=== PATIENT | male | born 1955 | race Caucasian/White ===

== ENCOUNTER 2017-10-13 11:40 | Inpatient (IN) | payer OTHER ==
[2017-10-13 14:08] VITALS: BMI 23.7
[2017-10-13] MEDS ORDERED: NICOTINE POLACRILEX 2 MG GUM BC PRN (15:34)
[2017-10-13] MEDS ORDERED: hydrOXYzine PAMOATE 50 MG CAPSULE (FP) PO PRN (15:34)
[2017-10-13] MEDS ORDERED: guaiFENesin/D-METHORPHAN HB 10 ML UNIT-DOSE CUPS PO PRN (15:34)
[2017-10-13] MEDS ORDERED: MENTHOL/PHENOL 1 EACH UD MM PRN (15:34)
[2017-10-13] MEDS ORDERED: LOPERAMIDE HCL 2 MG CAPSULE PO PRN (15:34)
[2017-10-13] MEDS ORDERED: MAG HYDROX/AL HYDROX/SIMETH 30 ML UNIT-DOSE CUP PO PRN (15:34)
[2017-10-13] MEDS ORDERED: IBUPROFEN 400 MG TABLET (FP) PO PRN (15:34)
[2017-10-13] MEDS ORDERED: MAGNESIUM CITRATE 300 ML BOTTLE PO PRN (15:34)
[2017-10-13] MEDS ORDERED: ACETAMINOPHEN 325 MG TABLET (FP) PO PRN (15:34)
[2017-10-13] MEDS ORDERED: P-EPHED 60MG/TRIPROLIDI 2.5MG TABLET PO PRN (15:34)
[2017-10-13] MEDS ORDERED: MAGNESIUM HYDROX 2400MG/30ML ORAL SUSPENSION 30 ML CUP PO PRN (15:34)
--- NOTE | 2017-10-13 15:44 | HP ---
COWS - Scale Resting Pulse: 0= [place] 80 or Below Sweatin=Flushed/Facial Moisture Restless Observation: 1= Difficult to Sit Still Pupil Size: 0= Normal to Room Light Bone or Joint Aches: 2= Severe Diffuse Aches Runny Nose/ Eye Tearin= Runny Nose/Eyes GI Upset > 30mins: 2= Nausea/Diarrhea Tremor Observation: 2= Slight Tremor Visible Yawning Observation: 1= 1-2x During Session Anxiety or Irritability: 2=Irritable/Anxious Goose Flesh Skin: 0=Smooth Skin COWS Score: 14 [facility] Chief Complaint: Withdrawal sx. Allergies/Adverse Reactions: Allergies Allergy/AdvReac Type Severity Reaction Status Date / Time No Known Allergies Allergy Verified 10/13/17 15:01 History of Present Illness: 62 y/o man with a long hx. of heroin dependence is admitted for detox. Pt. has been in previous detox, denies significant period drug free. Exam Limitations: No Limitations - Ebola screening Have you traveled outside of the country in the last 21 days: No Have you had contact with anyone from an Ebola affected area: No Have you been sick,other than usual withdrawal symptoms: No Do you have a fever: No - Review of Systems Constitutional: Diaphoresis EENT: reports: No Symptoms Reported Respiratory: reports: No Symptoms reported Cardiac: reports: No Symptoms Reported GI: reports: Diarrhea, Nausea, Abdominal cramping : reports: No Symptoms Reported Musculoskeletal: reports: No Symptoms Reported Integumentary: reports: Sweating Neuro: reports: Tremors Endocrine: reports: No Symptoms Reported Hematology: reports: No Symptoms Reported Psychiatric: reports: No Sypmtoms Reported Other Systems: Reviewed and Negative Patient History - Patient Medical History Hx Anemia: No Hx Asthma: No Hx Chronic Obstructive Pulmonary Disease (COPD): No Hx Cancer: No Hx Cardiac Disorders: No Hx Congestive Heart Failure: No Hx Hypertension: No Hx Hypercholesterolemia: No Hx Pacemaker: No HX Cerebrovascular Accident: No Hx Seizures: No Hx Dementia: No Hx Diabetes: No Hx Gastrointestinal Disorders: No Hx Liver Disease: No Hx Genitourinary Disorders: No Hx Sexually Transmitted Disorders: No Hx Renal Disease (ESRD): No Hx Thyroid Disease: No Hx Human Immunodeficiency Virus (HIV): No Hx Hepatitis C: No Hx Depression: No Hx Suicide Attempt: No Hx Bipolar Disorder: No Hx Schizophrenia: No - Patient Surgical History Past Surgical History: No - PPD History Previous Implant?: Yes Documented Results: Negative w/o proof Implanted On Prior [facility] Admission?: No PPD to be Administered?: Yes - Smoking Cessation Smoking history: Current every day smoker Have you smoked in the past 12 months: Yes Aproximately how many cigarettes per day: 20 Hx Chewing Tobacco Use: No Initiated information on smoking cessation: Yes 'Breaking Loose' booklet given: 10/13/17 - Substance & Tx. History Hx Alcohol Use: No Hx Substance Use: Yes Substance Use Type: Heroin Hx Substance Use Treatment: Yes (Detox 4-5 yrs. ago) - Substances Abused Heroin Route: Inhalation Frequency: Daily Amount used: 10 BAGS Age of first use: 16 Date of Last Use: 10/12/17 Family Disease History - Family Disease History Family History: Denies Admission Physical Exam [facility] - Vital Signs Vital Signs: Vital Signs - 24 hr 10/13/17 14:04 Temperature 97.6 F Pulse Rate 64 Respiratory 18 Rate Blood Pressure 108/57 - Physical General Appearance: Yes: Irritable, Sweating, Anxious HEENTM: Yes: Nasal Congestion, Rhinorrhea Respiratory: Yes: Chest Non-Tender, Lungs Clear, Normal Breath Sounds Neck: Yes: Supple Breast: Yes: Breast Exam Deferred Cardiology: Yes: Regular Rhythm, Regular Rate, S1, S2 Abdominal: Yes: Normal Bowel Sounds, Non Tender, Soft Genitourinary: Yes: Within Normal Limits Back: Yes: Within Normal Limits Musculoskeletal: Yes: Within Normal Limits Extremities: Yes: Tremors Neurological: Yes: Fully Oriented, Alert Integumentary: Yes: Diaphoresis Lymphatic: Yes: Within Normal Limits - Diagnostic (1) Opioid dependence with withdrawal Current Visit: Yes Status: Acute Cleared for Admission [facility] - Detox or Rehab [facility] Level of Care: Medically Managed Detox Regimen/Protocol: Methadone [facility] Breath Alcohol Content Breath Alcohol Content: 0 Urine Drug Screen - Results Drug Screen Negative: No Urine Drug Screen Results: OPI-Opiates
[2017-10-13] MEDS ORDERED: METHADONE HCL 10 MG TABLET (FOR DETOX USE ONLY) PO ONE ×2 (17:00→23:00)
[2017-10-13] MEDS: NICOTINE 21 MG/24 HOURS TOPICAL PATCH TD SCH (17:24)
[2017-10-13] MEDS: diazePAM 5 MG TABLET PO PRN ×2 (17:24→22:52)
[2017-10-13 18:14] LABS: URINE APPEARANCE CLEAR; URINE BILIRUBIN NEGATIVE (NEGATIVE); URINE BLOOD NEGATIVE (NEGATIVE); URINE COLOR LTYELLOW; URINE GLUCOSE (UA) NEGATIVE (NEGATIVE); URINE KETONE NEGATIVE (NEGATIVE); URINE LEUK ESTERASE NEGATIVE (NEGATIVE); URINE NITRITE NEGATIVE (NEGATIVE); URINE PROTEIN NEGATIVE (NEGATIVE); URINE UROBILINOGEN NEGATIVE mg/dL (0.2-1.0)
[2017-10-13] MEDS: THIAMINE HCL 100 MG TABLET (FP) PO SCH (22:52)
[2017-10-13 23:17] LABS: URINE LEUK ESTERASE Negative (NEGATIVE)
[2017-10-14 09:41] LABS: MCH 34.2 pg (25.7-33.7); MCHC 34.4 g/dl (32.0-35.9); MEAN CELL VOLUME 99.2 fl (80-96); MEAN PLT VOLUME 8.3 fl (7.5-11.1); PLATELET COUNT 291 K/MM3 (134-434); RDW 13.4 % (11.9-15.9); WHITE BLOOD COUNT 7.2 K/mm3 (4.0-10.0)
[2017-10-14] MEDS ORDERED: METHADONE HCL 10 MG TABLET (FOR DETOX USE ONLY) PO ONE (10:00)
[2017-10-14 10:08] LABS: ALBUMIN 3.9 g/dl (3.4-5.0); ALK PHOS 95 U/L (45-117); ANION GAP 6 (8-16); BILIRUBIN,TOTAL 0.7 mg/dL (0.2-1.0); CALCIUM 8.5 mg/dL (8.5-10.1); CO2 30 mmol/L (21-32); GLUCOSE,RANDOM 92 mg/dL (74-106); SGOT/AST 16 U/L (15-37); SGPT/ALT 20 U/L (12-78); TOT PROT 7.3 g/dl (6.4-8.2)
[2017-10-14] MEDS: diazePAM 5 MG TABLET PO PRN ×2 (10:49→23:13)
[2017-10-14] MEDS: PRENATAL VITAMINS W/ FOLIC ACID TABLET (FP) PO SCH (10:49)
[2017-10-14] MEDS: NICOTINE 21 MG/24 HOURS TOPICAL PATCH TD SCH (10:51)
--- NOTE | 2017-10-14 16:17 | PN ---
BHS COWS - Scale Resting Pulse: 1= [place] 81-100 Sweatin=Flushed/Facial Moisture Restless Observation: 1= Difficult to Sit Still Pupil Size: 0= Normal to Room Light Bone or Joint Aches: 2= Severe Diffuse Aches Runny Nose/ Eye Tearin= None GI Upset > 30mins: 0= None Tremor Observation of Outstretched Hands: 2= Slight Tremor Visible Yawning Observation: 1= 1-2x During Session Anxiety or Irritability: 4=Extreme Anxiety Goose Flesh Skin: 3=Piloerection COWS Score: 16 BHS Progress Note (SOAP) Subjective: Tremors, Anxious, Body Aches, Sweating. Objective: PT. A & O X 3, OBSERVED AMBULATING ON UNIT. NO ACUTE DISTRESS. 10/14/17 16:16 Vital Signs Temperature 97.3 F L 10/14/17 10:00 Pulse Rate 87 10/14/17 10:00 Respiratory Rate 18 10/14/17 10:00 Blood Pressure 104/68 10/14/17 10:00 O2 Sat by Pulse Oximetry (%) Laboratory Tests 10/13/17 10/14/17 10/14/17 16:11 06:05 06:05 WBC 7.2 RBC 3.82 L Hgb 13.0 Hct 37.9 MCV 99.2 H MCH 34.2 H MCHC 34.4 RDW 13.4 Plt Count 291 MPV 8.3 Sodium 142 Potassium 4.3 Chloride 106 Carbon Dioxide 30 Anion Gap 6 L BUN 7 Creatinine 1.0 Creat Clearance w eGFR > 60 Random Glucose 92 Calcium 8.5 Total Bilirubin 0.7 AST 16 ALT 20 Alkaline Phosphatase 95 Total Protein 7.3 Albumin 3.9 Urine Color Ltyellow Urine Appearance Clear Urine pH 6.0 Ur Specific [place] 1.009 Urine Protein Negative Urine Glucose (UA) Negative Urine Ketones Negative Urine Blood Negative Urine Nitrite Negative Urine Bilirubin Negative Urine Urobilinogen Negative Ur Leukocyte Esterase Negative RPR Titer 10/14/17 06:05 WBC RBC Hgb Hct MCV MCH MCHC RDW Plt Count MPV Sodium Potassium Chloride Carbon Dioxide Anion Gap BUN Creatinine Creat Clearance w eGFR Random Glucose Calcium Total Bilirubin AST ALT Alkaline Phosphatase Total Protein Albumin Urine Color Urine Appearance Urine pH Ur Specific [place] Urine Protein Urine Glucose (UA) Urine Ketones Urine Blood Urine Nitrite Urine Bilirubin Urine Urobilinogen Ur Leukocyte Esterase RPR Titer Nonreactive LABS NOTED. Assessment: 10/14/17 16:16 WITHDRAWAL SYMPTOMS. Plan: CONTINUE DETOX. INCREASE DAILY PO FLUID INTAKE.
[2017-10-14] MEDS: THIAMINE HCL 100 MG TABLET (FP) PO SCH (23:11)
--- NOTE | 2017-10-15 08:51 | EKG ---
Test Reason : Blood Pressure : / mmHG Vent. Rate : 065 BPM Atrial Rate : 065 BPM P-R Int : 158 ms QRS Dur : 088 ms QT Int : 416 ms P-R-T Axes : 075 -18 068 degrees QTc Int : 432 ms NORMAL SINUS RHYTHM NORMAL ECG NO PREVIOUS ECGS AVAILABLE Confirmed by MARIXA TONEY MD ([id number]) on 10/15/2017 8:50:31 AM Referred By: Confirmed By:MARIXA TONEY MD
[2017-10-15] MEDS ORDERED: METHADONE HCL 5 MG TABLET (FOR DETOX USE ONLY) PO ONE (10:00)
[2017-10-15] MEDS: PRENATAL VITAMINS W/ FOLIC ACID TABLET (FP) PO SCH (10:56)
[2017-10-15] MEDS: NICOTINE 21 MG/24 HOURS TOPICAL PATCH TD SCH (10:56)
[2017-10-15] MEDS ORDERED: FLU VACCINE QUAD 60 MCG/0.5 ML (MDV 17-18) IM ONE (12:00)
--- NOTE | 2017-10-15 17:13 | PN ---
S COWS - Scale Resting Pulse: 0= [place] 80 or Below Sweatin=Flushed/Facial Moisture Restless Observation: 3= Extraneous Movement Pupil Size: 0= Normal to Room Light Bone or Joint Aches: 2= Severe Diffuse Aches Runny Nose/ Eye Tearin= Runny Nose/Eyes GI Upset > 30mins: 2= Nausea/Diarrhea Tremor Observation of Outstretched Hands: 2= Slight Tremor Visible Yawning Observation: 1= 1-2x During Session Anxiety or Irritability: 2=Irritable/Anxious Goose Flesh Skin: 0=Smooth Skin COWS Score: 16 S Progress Note (SOAP) Subjective: Sweating, nausea, anxious, interrupted sleep Objective: 10/15/17 17:12 Last Vital Signs Temp Pulse Resp BP Pulse Ox 96.8 F L 74 18 98/70 10/15/17 11:02 10/15/17 11:02 10/15/17 14:32 10/15/17 11:02 b/p 98/70: hypotension Laboratory Tests 10/13/17 10/14/17 10/14/17 16:11 06:05 06:05 WBC 7.2 RBC 3.82 L Hgb 13.0 Hct 37.9 MCV 99.2 H MCH 34.2 H MCHC 34.4 RDW 13.4 Plt Count 291 MPV 8.3 Sodium 142 Potassium 4.3 Chloride 106 Carbon Dioxide 30 Anion Gap 6 L BUN 7 Creatinine 1.0 Creat Clearance w eGFR > 60 Random Glucose 92 Calcium 8.5 Total Bilirubin 0.7 AST 16 ALT 20 Alkaline Phosphatase 95 Total Protein 7.3 Albumin 3.9 Urine Color Ltyellow Urine Appearance Clear Urine pH 6.0 Ur Specific [place] 1.009 Urine Protein Negative Urine Glucose (UA) Negative Urine Ketones Negative Urine Blood Negative Urine Nitrite Negative Urine Bilirubin Negative Urine Urobilinogen Negative Ur Leukocyte Esterase Negative RPR Titer 10/14/17 06:05 WBC RBC Hgb Hct MCV MCH MCHC RDW Plt Count MPV Sodium Potassium Chloride Carbon Dioxide Anion Gap BUN Creatinine Creat Clearance w eGFR Random Glucose Calcium Total Bilirubin AST ALT Alkaline Phosphatase Total Protein Albumin Urine Color Urine Appearance Urine pH Ur Specific [place] Urine Protein Urine Glucose (UA) Urine Ketones Urine Blood Urine Nitrite Urine Bilirubin Urine Urobilinogen Ur Leukocyte Esterase RPR Titer Nonreactive Labs noted Assessment: 12/10/17 17:12 Withdrawal symptoms Noted with hypotension Plan: Continue detox Hypotension: asymptomatic, encouraged to drink lots of water
[2017-10-15 22:06] VITALS: BP 108/63; PULSE 72; TEMP 97.6
[2017-10-15] MEDS: THIAMINE HCL 100 MG TABLET (FP) PO SCH (22:49)
[2017-10-15] MEDS: diazePAM 5 MG TABLET PO PRN (22:51)
--- NOTE | 2017-10-16 09:26 | DS ---
[facility] Detox Discharge Summary Admission Date: 10/13/17 Discharge Date: 10/16/17 - History Present History: Opioid Dependence Additional Comments: PT DECLINED TO CONTINUE WITH DETOX STATING "I HAVE BREAST XRAY TODAY". PT KNOWS WHERE HE IS GOING BUT DOES NOT REMEMBER NAME OF FACILITY. ALERT O X 3. NAD. PT INSTRUCTED TO FOLLOW UP WITH HIS PCP FOR MEDICAL MANAGEMENT OF MEDICAL CONDITIONS. Pertinent Past History: PT DENIED ALL PMHx AND PSYHx - Physical Exam Results Vital Signs: Vital Signs Temperature 97.6 F 10/15/17 22:06 Pulse Rate 72 10/15/17 22:06 Respiratory Rate 18 10/16/17 03:30 Blood Pressure 108/63 10/15/17 22:06 O2 Sat by Pulse Oximetry (%) Pertinent Admission Physical Exam Findings: WITHDRAWAL SX Laboratory Last Values WBC 7.2 K/mm3 (4.0-10.0) 10/14/17 06:05 RBC 3.82 M/mm3 (4.00-5.60) L 10/14/17 06:05 Hgb 13.0 GM/dL (11.7-16.9) 10/14/17 06:05 Hct 37.9 % (35.4-49) 10/14/17 06:05 MCV 99.2 fl (80-96) H 10/14/17 06:05 MCH 34.2 pg (25.7-33.7) H 10/14/17 06:05 MCHC 34.4 g/dl (32.0-35.9) 10/14/17 06:05 RDW 13.4 % (11.9-15.9) 10/14/17 06:05 Plt Count 291 K/MM3 (134-434) 10/14/17 06:05 MPV 8.3 fl (7.5-11.1) 10/14/17 06:05 Sodium 142 mmol/L (136-145) 10/14/17 06:05 Potassium 4.3 mmol/L (3.5-5.1) 10/14/17 06:05 Chloride 106 mmol/L (98-107) 10/14/17 06:05 Carbon Dioxide 30 mmol/L (21-32) 10/14/17 06:05 Anion Gap 6 (8-16) L 10/14/17 06:05 BUN 7 mg/dL (7-18) 10/14/17 06:05 Creatinine 1.0 mg/dL (0.7-1.3) 10/14/17 06:05 Creat Clearance w eGFR > 60 (>60) 10/14/17 06:05 Random Glucose 92 mg/dL (74-106) 10/14/17 06:05 Calcium 8.5 mg/dL (8.5-10.1) 10/14/17 06:05 Total Bilirubin 0.7 mg/dL (0.2-1.0) 10/14/17 06:05 AST 16 U/L (15-37) 10/14/17 06:05 ALT 20 U/L (12-78) 10/14/17 06:05 Alkaline Phosphatase 95 U/L (45-117) 10/14/17 06:05 Total Protein 7.3 g/dl (6.4-8.2) 10/14/17 06:05 Albumin 3.9 g/dl (3.4-5.0) 10/14/17 06:05 Urine Color Ltyellow 10/13/17 16:11 Urine Appearance Clear 10/13/17 16:11 Urine pH 6.0 (5.0-8.0) 10/13/17 16:11 Ur Specific [place] 1.009 (1.001-1.035) 10/13/17 16:11 Urine Protein Negative (NEGATIVE) 10/13/17 16:11 Urine Glucose (UA) Negative (NEGATIVE) 10/13/17 16:11 Urine Ketones Negative (NEGATIVE) 10/13/17 16:11 Urine Blood Negative (NEGATIVE) 10/13/17 16:11 Urine Nitrite Negative (NEGATIVE) 10/13/17 16:11 Urine Bilirubin Negative (NEGATIVE) 10/13/17 16:11 Urine Urobilinogen Negative mg/dL (0.2-1.0) 10/13/17 16:11 Ur Leukocyte Esterase Negative (NEGATIVE) 10/13/17 16:11 RPR Titer Nonreactive (NONREACTIVE) 10/14/17 06:05 - Treatment Hospital Course: Discharged Condition Good - Medication Discharge Medications: Ambulatory Orders NK [No Known Home Medication] 10/13/17 - AMA Did Patient Leave Against Medical Advice: Yes (AMA)
[2017-10-16] MEDS ORDERED: METHADONE HCL 5 MG TABLET (FOR DETOX USE ONLY) PO ONE (10:00)
[2017-10-17] MEDS ORDERED: METHADONE HCL 10 MG TABLET (FOR DETOX USE ONLY) PO ONE (10:00)
[2017-10-18] MEDS ORDERED: METHADONE HCL 5 MG TABLET (FOR DETOX USE ONLY) PO ONE (06:00)
== END 2017-10-16 09:48 | disposition left against medical advice (07) | DRG 770 ==
LOC: EDSEX → YASAS 11:40 → Y3N 15:33
PROVIDERS: ADMIT Internal Medicine; ATTEND Internal Medicine
PROC: HZ2ZZZZ Detoxification Services for Substance Abuse Treatment (ICD-10-PCS; principal; 2017-10-13)
DX: F11.23 Opioid dependence with withdrawal (principal); F17.210 Nicotine dependence, cigarettes, uncomplicated
CPT/HCPCS: 36415; 80053; 81003; 85027; 86593; 93005; 93010

== ENCOUNTER 2018-10-25 13:12 | Inpatient (IN) | payer OTHER ==
[2018-10-25 13:18] VITALS: BMI 22.3
--- NOTE | 2018-10-25 18:19 | HP ---
COWS - Scale Resting Pulse: 0= [place] 80 or Below Sweatin=Flushed/Facial Moisture Restless Observation: 1= Difficult to Sit Still Pupil Size: 0= Normal to Room Light Bone or Joint Aches: 2= Severe Diffuse Aches Runny Nose/ Eye Tearin= Runny Nose/Eyes GI Upset > 30mins: 2= Nausea/Diarrhea Tremor Observation: 2= Slight Tremor Visible Yawning Observation: 2= >3x During Session Anxiety or Irritability: 2=Irritable/Anxious Goose Flesh Skin: 3=Piloerection COWS Score: 18 CIWA Score - Admission Criteria [facility] Guidelines: Admission for Medically Managed Detox: Requires at least one of the followin. CIWA greater than 12 2. Seizures within the past 24 hours 3. Delirium tremens within the past 24 hours 4. Hallucinations within the past 24 hours 5. Acute intervention needed for co occurring medical disorder 6. Acute intervention needed for co occurring psychiatric disorder 7. Severe withdrawal that cannot be handled at a lower level of care (continued vomiting, continued diarrhea, abnormal vital signs) requiring intravenous medication and/or fluids 8. Admission ROS S - HPI Chief Complaint: I need to help to stop using. Allergies/Adverse Reactions: Allergies Allergy/AdvReac Type Severity Reaction Status Date / Time No Known Allergies Allergy Verified 10/13/17 15:01 History of Present Illness: pt is a 63yr old male with a history of heroin dependence seeking detox for treatment. Exam Limitations: No Limitations - Ebola screening Have you traveled outside of the country in the last 21 days: No Have you had contact with anyone from an Ebola affected area: No Have you been sick,other than usual withdrawal symptoms: No Do you have a fever: No - Review of Systems Constitutional: Chills, Diaphoresis, Loss of Appetite, Night Sweats, Changes in sleep EENT: reports: Tearing, Nose Congestion Respiratory: reports: No Symptoms reported Cardiac: reports: No Symptoms Reported GI: reports: Constipated, Poor Appetite, Poor Fluid Intake, Abdominal cramping : reports: No Symptoms Reported Musculoskeletal: reports: No Symptoms Reported Integumentary: reports: Flushing, Sweating Neuro: reports: Headache, Tingling, Tremors Endocrine: reports: Excessive Sweating, Flushing, Intolerance to Heat Hematology: reports: No Symptoms Reported Psychiatric: reports: Judgement Intact, Mood/Affect Appropiate, Orientated x3, Agitated, Anxious Other Systems: Reviewed and Negative Patient History - Patient Medical History Hx Anemia: No Hx Asthma: No Hx Chronic Obstructive Pulmonary Disease (COPD): No Hx Cancer: No Hx Cardiac Disorders: No Hx Congestive Heart Failure: No Hx Hypertension: No Hx Hypercholesterolemia: No Hx Pacemaker: No HX Cerebrovascular Accident: No Hx Seizures: No Hx Dementia: No Hx Diabetes: No Hx Gastrointestinal Disorders: No Hx Liver Disease: No Hx Genitourinary Disorders: No Hx Sexually Transmitted Disorders: No Hx Renal Disease (ESRD): No Hx Thyroid Disease: No Hx Human Immunodeficiency Virus (HIV): No (negative) Hx Hepatitis C: No (negative) Hx Depression: No Hx Suicide Attempt: No Hx Bipolar Disorder: No Hx Schizophrenia: No - Patient Surgical History Past Surgical History: No - PPD History Previous Implant?: Yes Documented Results: Positive w/proof Implanted On Prior [facility] Admission?: No Date: 10/15/17 PPD to be Administered?: No - Reproductive History Patient is a Female of Child Bearing Age (11 -55 yrs old): No - Smoking Cessation Smoking history: Current every day smoker Have you smoked in the past 12 months: Yes Aproximately how many cigarettes per day: 10 Hx Chewing Tobacco Use: No Initiated information on smoking cessation: Yes 'Breaking Loose' booklet given: 10/25/18 - Substance & Tx. History Hx Alcohol Use: No Hx Substance Use: Yes Substance Use Type: Cocaine, Heroin Hx Substance Use Treatment: Yes (last detox 10/2017) - Substances Abused Heroin Route: Inhalation Frequency: Daily Amount used: 4-5 bags Age of first use: 13 Date of Last Use: 10/25/18 Cocaine Route: Inhalation Frequency: 1-3 times last 30 days Amount used: $2 Age of first use: 19 Date of Last Use: 10/23/18 Family Disease History - Family Disease History Family History: Denies Admission Physical Exam [facility] - Vital Signs Vital Signs: Vital Signs - 24 hr 10/25/18 13:16 Temperature 96 F L Pulse Rate 64 Respiratory 20 Rate Blood Pressure 122/71 - Physical General Appearance: Yes: Appropriately Dressed, Moderate Distress, Thin, Tremorous, Irritable, Sweating HEENTM: Yes: Hearing grossly Normal, Normal Voice Respiratory: Yes: Lungs Clear, Normal Breath Sounds, No Respiratory Distress Neck: Yes: No masses,lesions,Nodules Breast: Yes: Within Normal Limits Cardiology: Yes: Regular Rhythm, Regular Rate, S1, S2 Abdominal: Yes: Normal Bowel Sounds, Non Tender, Soft Genitourinary: Yes: Within Normal Limits Back: Yes: Normal Inspection Musculoskeletal: Yes: full range of Motion, Gait Steady Extremities: Yes: Normal Capillary Refill, Non-Tender, Tremors Neurological: Yes: Fully Oriented, Alert, Normal Response Integumentary: Yes: Normal Color, Diaphoresis Lymphatic: Yes: Within Normal Limits - Diagnostic (1) Opioid dependence with withdrawal Current Visit: Yes Status: Chronic (2) Nicotine dependence Current Visit: Yes Status: Chronic Qualifiers: Nicotine product type: cigarettes Substance use status: uncomplicated Qualified Code(s): F17.210 - Nicotine dependence, cigarettes, uncomplicated Cleared for Admission [facility] - Detox or Rehab [facility] Level of Care: Medically Managed Detox Regimen/Protocol: Methadone [facility] Breath Alcohol Content Breath Alcohol Content: 0 Urine Drug Screen - Results Drug Screen Negative: No Urine Drug Screen Results: MARICHUY-Cocaine, OPI-Opiates, FEN-Fentanyl
[2018-10-25] MEDS ORDERED: NICOTINE POLACRILEX 4 MG GUM BUC PRN (18:22)
[2018-10-25] MEDS ORDERED: MENTHOL/PHENOL 1 EACH UD MM PRN (18:22)
[2018-10-25] MEDS ORDERED: P-EPHED 60MG/TRIPROLIDI 2.5MG TABLET PO PRN (18:22)
[2018-10-25] MEDS ORDERED: ACETAMINOPHEN 325 MG TABLET (FP) PO PRN (18:22)
[2018-10-25] MEDS ORDERED: hydrOXYzine PAMOATE 50 MG CAPSULE (FP) PO PRN (18:22)
[2018-10-25] MEDS ORDERED: METHADONE HCL 10 MG TABLET (FOR DETOX USE ONLY) PO ONE ×2 (18:22→23:00)
[2018-10-25] MEDS ORDERED: LOPERAMIDE HCL 2 MG CAPSULE PO PRN (18:22)
[2018-10-25] MEDS ORDERED: MAG HYDROX/AL HYDROX/SIMETH 30 ML UNIT-DOSE CUP PO PRN (18:22)
[2018-10-25] MEDS ORDERED: IBUPROFEN 400 MG TABLET (FP) PO PRN (18:22)
[2018-10-25] MEDS ORDERED: guaiFENesin/D-METHORPHAN HB 10 ML UNIT-DOSE CUPS PO PRN (18:22)
[2018-10-25] MEDS ORDERED: MAGNESIUM HYDROX 2400MG/30ML ORAL SUSPENSION 30 ML CUP PO PRN (18:22)
[2018-10-25] MEDS ORDERED: MAGNESIUM CITRATE 300 ML BOTTLE PO PRN (18:22)
[2018-10-25] MEDS: diazePAM 5 MG TABLET PO PRN (19:07)
[2018-10-25] MEDS ORDERED: MELATONIN 5 MG TABLETS PO PRN (22:00)
[2018-10-25] MEDS: THIAMINE HCL 100 MG TABLET (FP) PO SCH (23:57)
[2018-10-26] MEDS ORDERED: METHADONE HCL 10 MG TABLET (FOR DETOX USE ONLY) PO ONE (10:00)
[2018-10-26] MEDS: NICOTINE 21 MG/24 HOURS TOPICAL PATCH TD SCH (10:28)
[2018-10-26] MEDS: PRENATAL VITAMINS W/ FOLIC ACID TABLET (FP) PO SCH (10:29)
[2018-10-26 10:51] LABS: HEMATOCRIT 39.3 % (35.4-49); HEMOGLOBIN 12.6 GM/dL (11.7-16.9); MCH 31.6 pg (25.7-33.7); MCHC 32.2 g/dl (32.0-35.9); MEAN CELL VOLUME 98.2 fl (80-96); MEAN PLT VOLUME 7.5 fl (7.5-11.1); PLATELET COUNT 242 K/MM3 (134-434); RDW 13.5 % (11.9-15.9)
[2018-10-26 11:01] LABS: ALBUMIN 3.4 g/dl (3.4-5.0); ALK PHOS 68 U/L (45-117); ANION GAP 5 MMOL/L (8-16); BILIRUBIN,TOTAL 0.6 mg/dL (0.2-1); BLOOD UREA NITROGEN 11 mg/dL (7-18); CALCIUM 8.8 mg/dL (8.5-10.1); CHLORIDE 110 mmol/L (98-107); CO2 27 mmol/L (21-32); CREATININE 1.1 mg/dL (0.55-1.3); GLUCOSE,RANDOM 104 mg/dL (74-106); POTASSIUM 4.2 mmol/L (3.5-5.1); SGOT/AST 16 U/L (15-37); SGPT/ALT 15 U/L (13-61); SODIUM 142 mmol/L (136-145); TOT PROT 6.6 g/dl (6.4-8.2)
--- NOTE | 2018-10-26 13:10 | PN ---
BHS COWS - Scale Resting Pulse: 0= [place] 80 or Below Sweatin= Chills/Flushing Restless Observation: 1= Difficult to Sit Still Pupil Size: 1= Pupils >than Normal Bone or Joint Aches: 1= Mild Discomfort Runny Nose/ Eye Tearin= Nasal Congestion GI Upset > 30mins: 1= Stomach Cramp Tremor Observation of Outstretched Hands: 1= Tremor [place], Not Seen Yawning Observation: 0= None Anxiety or Irritability: 1=Feels Anxious/Irritable Goose Flesh Skin: 0=Smooth Skin COWS Score: 8 BHS Progress Note (SOAP) Subjective: I'M sleepy Objective: 10/26/18 15:33 Vital Signs Temperature 97.5 F L 10/26/18 13:51 Pulse Rate 68 10/26/18 13:51 Respiratory Rate 18 10/26/18 13:51 Blood Pressure 128/70 10/26/18 13:51 O2 Sat by Pulse Oximetry (%) Laboratory Tests 10/26/18 10/26/18 07:00 07:00 WBC 6.0 RBC 4.00 Hgb 12.6 Hct 39.3 MCV 98.2 H MCH 31.6 MCHC 32.2 RDW 13.5 Plt Count 242 MPV 7.5 Sodium 142 Potassium 4.2 Chloride 110 H Carbon Dioxide 27 Anion Gap 5 L BUN 11 Creatinine 1.1 Creat Clearance w eGFR > 60 Random Glucose 104 Calcium 8.8 Total Bilirubin 0.6 AST 16 ALT 15 Alkaline Phosphatase 68 Total Protein 6.6 Albumin 3.4 pt aox3 , want to sleep, not very cooperative , in NAD 10/26/18 15:34 Assessment: 10/26/18 15:34 withdrawal sx's 10/26/18 15:35 pt refused to have cxr Plan: cont detox sign refusal for cxr cont fluids
[2018-10-26] MEDS: THIAMINE HCL 100 MG TABLET (FP) PO SCH (23:26)
[2018-10-27] MEDS ORDERED: METHADONE HCL 5 MG TABLET (FOR DETOX USE ONLY) PO ONE (10:00)
[2018-10-27] MEDS: PRENATAL VITAMINS W/ FOLIC ACID TABLET (FP) PO SCH (10:41)
[2018-10-27] MEDS: NICOTINE 21 MG/24 HOURS TOPICAL PATCH TD SCH (10:42)
--- NOTE | 2018-10-27 11:25 | PN ---
BHS COWS - Scale Resting Pulse: 0= [place] 80 or Below Sweatin= Chills/Flushing Restless Observation: 0= Sits Still Pupil Size: 0= Normal to Room Light Bone or Joint Aches: 2= Severe Diffuse Aches Runny Nose/ Eye Tearin= None GI Upset > 30mins: 0= None Tremor Observation of Outstretched Hands: 1= Tremor [place], Not Seen Yawning Observation: 2= >3x During Session Anxiety or Irritability: 2=Irritable/Anxious Goose Flesh Skin: 0=Smooth Skin COWS Score: 8 BHS Progress Note (SOAP) Subjective: irritable tired sweats Objective: 10/27/18 11:25 Vital Signs Temperature 99.1 F 10/27/18 09:29 Pulse Rate 61 10/27/18 09:29 Respiratory Rate 16 10/27/18 09:29 Blood Pressure 128/74 10/27/18 09:29 O2 Sat by Pulse Oximetry (%) Laboratory Tests 10/26/18 10/26/18 10/26/18 07:00 07:00 07:00 WBC 6.0 RBC 4.00 Hgb 12.6 Hct 39.3 MCV 98.2 H MCH 31.6 MCHC 32.2 RDW 13.5 Plt Count 242 MPV 7.5 Sodium 142 Potassium 4.2 Chloride 110 H Carbon Dioxide 27 Anion Gap 5 L BUN 11 Creatinine 1.1 Creat Clearance w eGFR > 60 Random Glucose 104 Calcium 8.8 Total Bilirubin 0.6 AST 16 ALT 15 Alkaline Phosphatase 68 Total Protein 6.6 Albumin 3.4 RPR Titer Nonreactive aaox3 ambulating no acute distress Assessment: 10/27/18 11:25 mild withdrawal sx Plan: continue detox increase fluids
[2018-10-27] MEDS: diazePAM 5 MG TABLET PO PRN (22:26)
[2018-10-27] MEDS: THIAMINE HCL 100 MG TABLET (FP) PO SCH (22:26)
[2018-10-28] MEDS ORDERED: METHADONE HCL 5 MG TABLET (FOR DETOX USE ONLY) PO ONE (10:00)
[2018-10-28] MEDS ORDERED: METHADONE HCL 10 MG TABLET (FOR DETOX USE ONLY) PO ONE (10:00)
--- NOTE | 2018-10-28 10:43 | PN ---
S Progress Note (SOAP) Subjective: feeling better today reported in pain management program received 90 pill of oxy 7.5 on 10/23/18 and preferred return to pain management program no body ache no tremor less sweat today sleep better today Objective: 10/28/18 10:42 Vital Signs Temperature 98.8 F 10/28/18 09:15 Pulse Rate 70 10/28/18 09:15 Respiratory Rate 18 10/28/18 09:15 Blood Pressure 122/85 10/28/18 09:15 O2 Sat by Pulse Oximetry (%) Laboratory Last Values WBC 6.0 K/mm3 (4.0-10.0) 10/26/18 07:00 RBC 4.00 M/mm3 (4.00-5.60) 10/26/18 07:00 Hgb 12.6 GM/dL (11.7-16.9) 10/26/18 07:00 Hct 39.3 % (35.4-49) 10/26/18 07:00 MCV 98.2 fl (80-96) H 10/26/18 07:00 MCH 31.6 pg (25.7-33.7) 10/26/18 07:00 MCHC 32.2 g/dl (32.0-35.9) 10/26/18 07:00 RDW 13.5 % (11.9-15.9) 10/26/18 07:00 Plt Count 242 K/MM3 (134-434) 10/26/18 07:00 MPV 7.5 fl (7.5-11.1) 10/26/18 07:00 Sodium 142 mmol/L (136-145) 10/26/18 07:00 Potassium 4.2 mmol/L (3.5-5.1) 10/26/18 07:00 Chloride 110 mmol/L (98-107) H 10/26/18 07:00 Carbon Dioxide 27 mmol/L (21-32) 10/26/18 07:00 Anion Gap 5 MMOL/L (8-16) L 10/26/18 07:00 BUN 11 mg/dL (7-18) 10/26/18 07:00 Creatinine 1.1 mg/dL (0.55-1.3) 10/26/18 07:00 Creat Clearance w eGFR > 60 (>60) 10/26/18 07:00 Random Glucose 104 mg/dL (74-106) 10/26/18 07:00 Calcium 8.8 mg/dL (8.5-10.1) 10/26/18 07:00 Total Bilirubin 0.6 mg/dL (0.2-1) 10/26/18 07:00 AST 16 U/L (15-37) 10/26/18 07:00 ALT 15 U/L (13-61) 10/26/18 07:00 Alkaline Phosphatase 68 U/L (45-117) 10/26/18 07:00 Total Protein 6.6 g/dl (6.4-8.2) 10/26/18 07:00 Albumin 3.4 g/dl (3.4-5.0) 10/26/18 07:00 RPR Titer Nonreactive (NONREACTIVE) 10/26/18 07:00 lab noted Assessment: 10/28/18 10:43 mild withdrawal sx Plan: medically supervised detox
[2018-10-28] MEDS: PRENATAL VITAMINS W/ FOLIC ACID TABLET (FP) PO SCH (12:30)
[2018-10-28] MEDS: NICOTINE 21 MG/24 HOURS TOPICAL PATCH TD SCH (12:30)
[2018-10-28 13:15] VITALS: BP 135/71; PULSE 67; TEMP 97.9
--- NOTE | 2018-10-28 14:35 | DS ---
[facility] Detox Discharge Summary Admission Date: 10/25/18 Discharge Date: 10/28/18 - History Present History: Opioid Dependence Additional Comments: 63 years old male admitted on 10/25/18 for opiate withdrawal stabilization refused methadone 10 mg today and insisted to leave the detox unit today patient reported that he is going back to oxy prescriber and continue oxy daily patient stated that he is with oxy provider "many many years" patient is alert no acute distress discuss negative consequences of opiate misuse, discuss benefits of medication assisted program - Physical Exam Results Vital Signs: Vital Signs Temperature 97.9 F 10/28/18 13:14 Pulse Rate 67 10/28/18 13:14 Respiratory Rate 16 10/28/18 13:14 Blood Pressure 135/71 10/28/18 13:14 O2 Sat by Pulse Oximetry (%) Pertinent Admission Physical Exam Findings: opiate withdrawal sx Laboratory Last Values WBC 6.0 K/mm3 (4.0-10.0) 10/26/18 07:00 RBC 4.00 M/mm3 (4.00-5.60) 10/26/18 07:00 Hgb 12.6 GM/dL (11.7-16.9) 10/26/18 07:00 Hct 39.3 % (35.4-49) 10/26/18 07:00 MCV 98.2 fl (80-96) H 10/26/18 07:00 MCH 31.6 pg (25.7-33.7) 10/26/18 07:00 MCHC 32.2 g/dl (32.0-35.9) 10/26/18 07:00 RDW 13.5 % (11.9-15.9) 10/26/18 07:00 Plt Count 242 K/MM3 (134-434) 10/26/18 07:00 MPV 7.5 fl (7.5-11.1) 10/26/18 07:00 Sodium 142 mmol/L (136-145) 10/26/18 07:00 Potassium 4.2 mmol/L (3.5-5.1) 10/26/18 07:00 Chloride 110 mmol/L (98-107) H 10/26/18 07:00 Carbon Dioxide 27 mmol/L (21-32) 10/26/18 07:00 Anion Gap 5 MMOL/L (8-16) L 10/26/18 07:00 BUN 11 mg/dL (7-18) 10/26/18 07:00 Creatinine 1.1 mg/dL (0.55-1.3) 10/26/18 07:00 Creat Clearance w eGFR > 60 (>60) 10/26/18 07:00 Random Glucose 104 mg/dL (74-106) 10/26/18 07:00 Calcium 8.8 mg/dL (8.5-10.1) 10/26/18 07:00 Total Bilirubin 0.6 mg/dL (0.2-1) 10/26/18 07:00 AST 16 U/L (15-37) 10/26/18 07:00 ALT 15 U/L (13-61) 10/26/18 07:00 Alkaline Phosphatase 68 U/L (45-117) 10/26/18 07:00 Total Protein 6.6 g/dl (6.4-8.2) 10/26/18 07:00 Albumin 3.4 g/dl (3.4-5.0) 10/26/18 07:00 RPR Titer Nonreactive (NONREACTIVE) 10/26/18 07:00 lab noted - Treatment Hospital Course: Detox Protocol Followed, Responded well Patient has Accepted a Rehab Referral to: patient preferred return to oxy provider today - Medication Discharge Medications: Ambulatory Orders NK [No Known Home Medication] 10/13/17 - Diagnosis (1) Pain management Current Visit: Yes Status: Chronic (2) Nicotine dependence Current Visit: Yes Status: Acute Qualifiers: Nicotine product type: cigarettes Substance use status: in withdrawal Qualified Code(s): F17.213 - Nicotine dependence, cigarettes, with withdrawal (3) Opioid dependence with withdrawal Current Visit: Yes Status: Acute - AMA Did Patient Leave Against Medical Advice: No
[2018-10-29] MEDS ORDERED: METHADONE HCL 5 MG TABLET (FOR DETOX USE ONLY) PO ONE (06:00)
[2018-10-29] MEDS ORDERED: METHADONE HCL 10 MG TABLET (FOR DETOX USE ONLY) PO ONE (10:00)
[2018-10-30] MEDS ORDERED: METHADONE HCL 5 MG TABLET (FOR DETOX USE ONLY) PO ONE (06:00)
== END 2018-10-28 14:26 | disposition left against medical advice (07) | DRG 770 ==
LOC: YASAS 13:12 → Y6N 17:58
PROC: HZ2ZZZZ Detoxification Services for Substance Abuse Treatment (ICD-10-PCS; principal; 2018-10-25)
DX: F11.23 Opioid dependence with withdrawal (principal); F17.213 Nicotine dependence, cigarettes, with withdrawal
CPT/HCPCS: 36415; 80053; 85027; 86593

== ENCOUNTER 2024-07-11 17:57 | Inpatient (IN) | payer OTHER ==
[2024-07-11] MEDS ORDERED: PIPERACILLIN/TAZOB 4.5 GM 4.5 GM/100 ML BAG IVPB ONE (21:51)
[2024-07-11] MEDS ORDERED: VANCOMYCIN 1 GRAM (PRE-DOCKED) 1,000 MG/250 ML BAG IVPB ONE (22:14)
[2024-07-11 22:16] LABS: VENOUS BASE EXCESS 0.6 mmol/L (-2-2); VENOUS O2 SATURATION 71.4 % (70-80); VENOUS PCO2 58.2 mmHg (38-52); VENOUS PH 7.302 (7.310-7.410)
[2024-07-11 22:35] LABS: INR 1.1 (0.83-1.09); POTASSIUM 4.2 mmol/L (3.5-5.1); PROTHROMBIN TIME (PATIENT) 12.4 SEC (9.7-13.0)
[2024-07-11 22:37] LABS: ACTIVATED PTT 30.1 SECONDS (25.2-36.5)
[2024-07-11 22:38] LABS: ALBUMIN 2.6 g/dl (3.4-5.0); BLOOD UREA NITROGEN 59.9 mg/dL (7-18)
[2024-07-11] MEDS: PIPERACILLIN/TAZOB 4.5 GM 4.5 GM in DEXTROSE 5%-WATER 100 ML IVPB ONE (22:39)
[2024-07-11] MEDS: VANCOMYCIN 1,000 MG in DEXTROSE 5%-WATER - 250 ML IVPB ONE (22:39)
[2024-07-11 22:41] LABS: CREATININE 2.2 mg/dL (0.55-1.3)
[2024-07-11 22:42] LABS: TOT PROT 8.2 g/dl (6.4-8.2)
[2024-07-11 22:49] LABS: BILIRUBIN,TOTAL 0.2 mg/dL (0.2-1)
[2024-07-11 22:56] LABS: BASO % 0.6 % (0-2.0); EOS % 4.1 % (0-4.5); HEMATOCRIT 25.2 % (35.4-49); HEMOGLOBIN 8.2 GM/dL (11.7-16.9); LYMPH % 14.2 % (8-40); MCH 31.3 pg (25.7-33.7); MCHC 32.4 g/dl (32.0-35.9); MEAN CELL VOLUME 96.6 fl (80-96); MEAN PLT VOLUME 7.9 fl (7.5-11.1); MONO % 13.5 % (3.8-10.2); NEUT % 67.6 % (42.8-82.8); PLATELET COUNT 267 10^3/uL (134-434); RBC 2.61 M/mm3 (4.00-5.60); RDW 16.9 % (11.9-15.9); WHITE BLOOD COUNT 12.9 K/mm3 (4.0-10.0)
[2024-07-12] MEDS ORDERED: TAMSULOSIN HCL 0.4 MG CAP PO ONE (00:54)
[2024-07-12] MEDS ORDERED: PIPERACILLIN/TAZOB 3.375 GM 3.375 GM/50 ML BAG IVPB ONE (01:09)
[2024-07-12 01:12] LABS: EPI CELLS 12 /uL (0-25.1); HYALINE CASTS 1 /uL (0-3.1); PH,URINE 5.5 (5.0-8.0); URINE APPEARANCE CLEAR; URINE BACTERIA 15 /uL (0-1359); URINE BILIRUBIN NEGATIVE (NEGATIVE); URINE COLOR YELLOW; URINE GLUCOSE (UA) NEGATIVE (NEGATIVE); URINE KETONE NEGATIVE (NEGATIVE); URINE LEUK ESTERASE NEGATIVE (NEGATIVE); URINE NITRITE NEGATIVE (NEGATIVE); URINE PROTEIN 2+ (NEGATIVE); URINE UROBILINOGEN 0.2 mg/dL (0.2-1.0); URINE WBC 19 /uL (0-25.8)
[2024-07-12 01:41] LABS: URINE RBC 85.7 /uL (0-23.9)
[2024-07-12] MEDS ORDERED: PIPERACILLIN/TAZOB 3.375 GM 3.375 GM in DEXTROSE 5%-WATER - 50 ML IVPB SCH (02:00)
[2024-07-12] MEDS: PIPERACILLIN/TAZOB 3.375 GM 3.375 GM in DEXTROSE 5%-WATER - 50 ML IVPB SCH ×2 (05:33→22:15)
[2024-07-12] MEDS ORDERED: MIDODRINE HCL 5 MG TABLET PEG SCH (06:00)
[2024-07-12] MEDS ORDERED: DEXTROSE 50%-WATER 25 GM/50 ML DISP.SYRIN IVPB PRN (07:47)
[2024-07-12] MEDS: IPRATROPIUM BR 0.02% 0.5 MG/2.5 ML VIAL.NEB. NEB SCH ×2 (08:21→12:17)
[2024-07-12] MEDS ORDERED: DESMOPRESSIN ACETATE NS SCH (10:00)
[2024-07-12] MEDS ORDERED: VANCOMYCIN ORAL SOLUTION 125 MG/2.5 ML GT SCH (10:00)
[2024-07-12] MEDS ORDERED: TAMSULOSIN HCL 0.4 MG CAP PO SCH (10:00)
[2024-07-12] MEDS: MOXIFLOXACIN HCL 0.5% OPHTHALMIC 3 ML BOTTLE OU SCH (10:33)
[2024-07-12] MEDS: ARTIFICIAL TEARS OPHTHALMIC DROPS OU SCH (10:34)
[2024-07-12] MEDS: ASCORBIC ACID 500 MG/5 ML UNIT DOSE CUP GT SCH (10:34)
[2024-07-12] MEDS: MIDODRINE HCL 5 MG TABLET GT SCH (10:35)
[2024-07-12] MEDS: FOLIC ACID 1 MG TABLET (FP) GT SCH (10:35)
[2024-07-12] MEDS: LACTOBACILLUS ACIDOPHILUS 1 TABLET GT SCH (10:35)
[2024-07-12] MEDS: ZINC SULFATE 220 MG CAPSULE (FP) GT SCH (10:35)
[2024-07-12] MEDS: POLYETHYLENE GLYCOL (HEALTHYLAX) 3350 17 GM PACKET PEG SCH (10:35)
[2024-07-12] MEDS: VITAMIN B COMP W-C 1 EA TABLET (NEPHRO-VITE) GT SCH (10:35)
[2024-07-12] MEDS: FERROUS SO4 300 MG/5 ML ORAL SOLN UNIT DOSE CUPS GT SCH (10:35)
[2024-07-12] MEDS: levETIRAcetam 500 MG/5 ML ORAL SOLUTION (UNIT-DOSE CUPS) PEG SCH (10:36)
[2024-07-12] MEDS: ERYTHROMYCIN 0.5% OPHTHALMIC OINTMENT 3.5 GM TUBE OU SCH (10:37)
[2024-07-12] MEDS: VANCOMYCIN 250 MG/5 ML ORAL SOLUTION (RESTRICTED TO ID ONLY) GT SCH (10:40)
[2024-07-12 10:45] LABS: BASO % 0.3 % (0-2.0); EOS % 3.4 % (0-4.5); HEMATOCRIT 25.5 % (35.4-49); HEMOGLOBIN 8.3 GM/dL (11.7-16.9); LYMPH % 11.5 % (8-40); MCH 31.1 pg (25.7-33.7); MCHC 32.4 g/dl (32.0-35.9); NEUT % 67.8 % (42.8-82.8); PLATELET COUNT 273 10^3/uL (134-434); RBC 2.65 M/mm3 (4.00-5.60); RDW 16.8 % (11.9-15.9); WHITE BLOOD COUNT 11.2 K/mm3 (4.0-10.0)
[2024-07-12] MEDS: HEPARIN NA (PORCINE) 5,000 UNITS/ML 1ML VIAL SQ SCH (10:53)
[2024-07-12] MEDS: SODIUM HYPOCHLORITE 0.25%- 473 ML BULK BOTTLE TP SCH (10:59)
[2024-07-12 11:06] LABS: POTASSIUM 4.1 mmol/L (3.5-5.1)
[2024-07-12 11:12] LABS: CALCIUM 9.5 mg/dL (8.5-10.1)
[2024-07-12 11:13] LABS: ALBUMIN 2.4 g/dl (3.4-5.0); MAGNESIUM 2.9 mg/dL (1.8-2.4)
[2024-07-12 11:16] LABS: CREATININE 2.4 mg/dL (0.55-1.3); PHOSPHOROUS 4.2 mg/dL (2.5-4.9)
[2024-07-12 11:17] LABS: BILIRUBIN,TOTAL 0.4 mg/dL (0.2-1)
[2024-07-12 11:18] LABS: TOT PROT 7.6 g/dl (6.4-8.2)
[2024-07-12] MEDS: INSULIN ASPART SLIDING SCALE (NOVOLOG) 1 VIAL SQ SCH (12:02)
[2024-07-12] MEDS: LEVALBUTEROL HCL 0.63 MG/3 ML VIAL.NEB. IH SCH (12:18)
[2024-07-12] MEDS: POLYETHYLENE GLYCOL (HEALTHYLAX) 3350 17 GM PACKET GT SCH (12:30)
[2024-07-12] MEDS: FINASTERIDE 5 MG TABLET (FP) GT SCH (12:35)
[2024-07-12 14:36] VITALS: BMI 23.4
[2024-07-12] MEDS: PNEUMOC 20-VAL CONJ-DIP CRM/PF 0.5 ML SYRINGE IM ONE (16:50)
[2024-07-12] MEDS: DOXAZOSIN MESYLATE 1 MG TABLET GT SCH (22:16)
[2024-07-12] MEDS: INSULIN (LEVEMIR) 100 UNITS/ML UNITS SQ SCH (22:19)
[2024-07-13] MEDS ORDERED: PIPERACILLIN/TAZOB 3.375 GM 3.375 GM in DEXTROSE 5%-WATER - 50 ML IVPB SCH (02:00)
[2024-07-13] MEDS: ACETAMINOPHEN 650 MG/20.3 ML ORAL SOLUTION (CUPS) PO PRN (05:19)
[2024-07-13] MEDS: AMINO ACIDS/PROTEIN HYDROLYS 30 ML LIQUID.PKT PEG SCH (08:28)
[2024-07-13 10:52] LABS: POTASSIUM 3.7 mmol/L (3.5-5.1)
[2024-07-13] MEDS: POLYETHYLENE GLYCOL (HEALTHYLAX) 3350 17 GM PACKET GT SCH (10:53)
[2024-07-13 10:55] LABS: BASO % 0.3 % (0-2.0); CALCIUM 10.1 mg/dL (8.5-10.1); EOS % 4.2 % (0-4.5); HEMATOCRIT 26.7 % (35.4-49); HEMOGLOBIN 8.7 GM/dL (11.7-16.9); LYMPH % 12.2 % (8-40); MCH 31.7 pg (25.7-33.7); MCHC 32.7 g/dl (32.0-35.9); MONO % 16.2 % (3.8-10.2); NEUT % 67.1 % (42.8-82.8); PLATELET COUNT 266 10^3/uL (134-434); RBC 2.75 M/mm3 (4.00-5.60); RDW 17.3 % (11.9-15.9); WHITE BLOOD COUNT 14.2 K/mm3 (4.0-10.0)
[2024-07-13 10:56] LABS: ALBUMIN 2.5 g/dl (3.4-5.0); BLOOD UREA NITROGEN 55.3 mg/dL (7-18); MAGNESIUM 2.8 mg/dL (1.8-2.4)
[2024-07-13 10:59] LABS: PHOSPHOROUS 4.4 mg/dL (2.5-4.9)
[2024-07-13 11:00] LABS: BILIRUBIN,TOTAL 0.4 mg/dL (0.2-1); TOT PROT 7.9 g/dl (6.4-8.2)
[2024-07-13 11:02] LABS: CREATININE 2.4 mg/dL (0.55-1.3); IRON SERUM 44 ug/dL (50-175); TOTAL IRON BINDING CAPACITY 156 ug/dL (250-450)
[2024-07-13] MEDS ORDERED: LORazepam 1 MG TABLET GT PRN (12:07)
[2024-07-13] MEDS ORDERED: HYDROmorphone HCl 2 MG/ML VIAL IVPUSH PRN (12:21)
[2024-07-13] MEDS: HYDROmorphone HCL CARPU-JECT 2 MG/1 ML DISP.SYRIN IVPUSH PRN (13:48)
[2024-07-13] MEDS: MELATONIN 1 MG TABLET GT SCH (22:19)
[2024-07-13] MEDS: ACETAMINOPHEN 650 MG/20.3 ML ORAL SOLUTION (CUPS) GT PRN (23:18)
[2024-07-14 08:41] LABS: HEMATOCRIT 25.8 % (35.4-49); HEMOGLOBIN 8.6 GM/dL (11.7-16.9); MCH 31.9 pg (25.7-33.7); MCHC 33.3 g/dl (32.0-35.9); MEAN CELL VOLUME 95.8 fl (80-96); MEAN PLT VOLUME 7.5 fl (7.5-11.1); PLATELET COUNT 271 10^3/uL (134-434); RBC 2.69 M/mm3 (4.00-5.60); RDW 17.4 % (11.9-15.9); WHITE BLOOD COUNT 13.9 K/mm3 (4.0-10.0)
[2024-07-14 09:05] LABS: POTASSIUM 3.7 mmol/L (3.5-5.1)
[2024-07-14 09:11] LABS: ALBUMIN 2.5 g/dl (3.4-5.0); BLOOD UREA NITROGEN 51.5 mg/dL (7-18); CALCIUM 10.4 mg/dL (8.5-10.1); MAGNESIUM 2.7 mg/dL (1.8-2.4)
[2024-07-14 09:14] LABS: BILIRUBIN,TOTAL 0.2 mg/dL (0.2-1); CREATININE 2.4 mg/dL (0.55-1.3); TOT PROT 7.8 g/dl (6.4-8.2)
[2024-07-14 09:15] LABS: PHOSPHOROUS 4.8 mg/dL (2.5-4.9)
[2024-07-14 10:28] LABS: PLATELET ESTIMATE ADEQUATE
[2024-07-14] MEDS: CEFTAZIDIME/AVIBACTAM 1.25 GM in DEXTROSE 5%-WATER - 100 ML IVPB SCH (22:44)
[2024-07-15] MEDS: DOXAZOSIN MESYLATE 4 MG TABLET GT SCH (22:03)
[2024-07-16 09:50] LABS: HEMATOCRIT 25.1 % (35.4-49); HEMOGLOBIN 8.5 GM/dL (11.7-16.9); MCH 32.5 pg (25.7-33.7); MCHC 33.8 g/dl (32.0-35.9); MEAN CELL VOLUME 96.1 fl (80-96); MEAN PLT VOLUME 8.3 fl (7.5-11.1); PLATELET COUNT 267 10^3/uL (134-434); RBC 2.61 M/mm3 (4.00-5.60); RDW 17.4 % (11.9-15.9); WHITE BLOOD COUNT 15.1 K/mm3 (4.0-10.0)
[2024-07-16 10:02] LABS: POTASSIUM 3.5 mmol/L (3.5-5.1)
[2024-07-16 10:04] LABS: CALCIUM 11.8 mg/dL (8.5-10.1)
[2024-07-16 10:05] LABS: ALBUMIN 2.6 g/dl (3.4-5.0); BLOOD UREA NITROGEN 57.8 mg/dL (7-18)
[2024-07-16 10:08] LABS: CREATININE 2.3 mg/dL (0.55-1.3)
[2024-07-16 10:10] LABS: BILIRUBIN,TOTAL 0.3 mg/dL (0.2-1); TOT PROT 7.9 g/dl (6.4-8.2)
[2024-07-16] MEDS: COLLAGENASE CLOSTRIDIUM HIST. 30 GRAMS TUBE TP SCH (11:59)
[2024-07-16 12:44] LABS: PLATELET ESTIMATE ADEQUATE
[2024-07-16] MEDS: SODIUM CHLORIDE 1,000 ML IV SCH (14:32)
[2024-07-16] MEDS ORDERED: INSULIN ASPART SLIDING SCALE (NOVOLOG) 1 VIAL SQ ONE (16:20)
[2024-07-16] MEDS: POTASSIUM CHLORIDE ORAL LIQUID 20 MEQ/15 ML GT ONE (21:46)
[2024-07-17 09:06] LABS: HEMATOCRIT 24.7 % (35.4-49); HEMOGLOBIN 8.2 GM/dL (11.7-16.9); MCH 32.2 pg (25.7-33.7); MCHC 33.3 g/dl (32.0-35.9); MEAN CELL VOLUME 96.7 fl (80-96); MEAN PLT VOLUME 8.2 fl (7.5-11.1); PLATELET COUNT 258 10^3/uL (134-434); RBC 2.56 M/mm3 (4.00-5.60); RDW 17.5 % (11.9-15.9); WHITE BLOOD COUNT 11.6 K/mm3 (4.0-10.0)
[2024-07-17 09:40] LABS: POTASSIUM 3.8 mmol/L (3.5-5.1)
[2024-07-17 09:42] LABS: CALCIUM 11.6 mg/dL (8.5-10.1)
[2024-07-17 09:43] LABS: ALBUMIN 2.4 g/dl (3.4-5.0); BLOOD UREA NITROGEN 56.8 mg/dL (7-18)
[2024-07-17 09:46] LABS: CREATININE 2.2 mg/dL (0.55-1.3)
[2024-07-17 09:48] LABS: BILIRUBIN,TOTAL 0.2 mg/dL (0.2-1); TOT PROT 7.4 g/dl (6.4-8.2)
[2024-07-17 16:12] LABS: C-ANCA <1:20 titer (Neg:<1:20)
[2024-07-18 09:50] LABS: HEMATOCRIT 23.2 % (35.4-49); HEMOGLOBIN 7.7 GM/dL (11.7-16.9); MCH 31.7 pg (25.7-33.7); MEAN CELL VOLUME 96.1 fl (80-96); MEAN PLT VOLUME 8.2 fl (7.5-11.1); PLATELET COUNT 272 10^3/uL (134-434); RBC 2.41 M/mm3 (4.00-5.60); RDW 17.8 % (11.9-15.9)
[2024-07-18 10:10] LABS: POTASSIUM 3.5 mmol/L (3.5-5.1)
[2024-07-18 10:12] LABS: ALBUMIN 2.3 g/dl (3.4-5.0); BLOOD UREA NITROGEN 51.8 mg/dL (7-18); CALCIUM 11.3 mg/dL (8.5-10.1)
[2024-07-18 10:16] LABS: BILIRUBIN,TOTAL 0.2 mg/dL (0.2-1)
[2024-07-18 10:17] LABS: TOT PROT 7.2 g/dl (6.4-8.2)
[2024-07-18 11:02] LABS: ANISOCYTOSIS 0; MACROCYTOSIS 0
[2024-07-18] MEDS ORDERED: POTASSIUM CHLORIDE ORAL LIQUID 20 MEQ/15 ML GT ONE (19:36)
[2024-07-18 22:07] LABS: PARATHYROID HORM INTACT 5 pg/mL (15-65)
[2024-07-19] MEDS: POTASSIUM CHLORIDE ORAL LIQUID 20 MEQ/15 ML GT ONE (00:38)
[2024-07-19 08:57] LABS: HEMATOCRIT 22.6 % (35.4-49); HEMOGLOBIN 7.7 GM/dL (11.7-16.9); MCH 32.7 pg (25.7-33.7); MEAN CELL VOLUME 96.1 fl (80-96); MEAN PLT VOLUME 7.8 fl (7.5-11.1); PLATELET COUNT 261 10^3/uL (134-434); RBC 2.35 M/mm3 (4.00-5.60); RDW 17.6 % (11.9-15.9); WHITE BLOOD COUNT 11.8 K/mm3 (4.0-10.0)
[2024-07-19 09:22] LABS: POTASSIUM 3.7 mmol/L (3.5-5.1)
[2024-07-19 09:55] LABS: CALCIUM 11.8 mg/dL (8.5-10.1)
[2024-07-19 09:56] LABS: ALBUMIN 2.4 g/dl (3.4-5.0); BLOOD UREA NITROGEN 48.3 mg/dL (7-18); MAGNESIUM 2.3 mg/dL (1.8-2.4)
[2024-07-19 09:59] LABS: CREATININE 1.9 mg/dL (0.55-1.3); PHOSPHOROUS 2.9 mg/dL (2.5-4.9)
[2024-07-19 10:01] LABS: BILIRUBIN,TOTAL 0.2 mg/dL (0.2-1); TOT PROT 7.2 g/dl (6.4-8.2)
[2024-07-19] MEDS: IPRATROPIUM BR 0.02% 0.5 MG/2.5 ML VIAL.NEB. NEB SCH (11:05)
[2024-07-19] MEDS: LEVALBUTEROL HCL 0.63 MG/3 ML VIAL.NEB. IH SCH (11:05)
[2024-07-19 11:15] LABS: ANISOCYTOSIS 0; HELMET CELLS 0; HOWELL-JOLLY BODIES 0; MACROCYTOSIS 0; OVALOCYTE 0; ROULEAU 0; SICKELED CELLS 0; TARGET CELLS 0; TEAR DROP CELLS 0; TOXIC GRANULATION 0
[2024-07-19 12:26] LABS: ERYTHROCYTE SEDIMENTATION RATE > 140 mm/hr (0-20)
[2024-07-19] MEDS ORDERED: IPRATROPIUM BR 0.02% 0.5 MG/2.5 ML VIAL.NEB. NEB SCH (14:00)
[2024-07-19] MEDS: AMINO ACIDS/PROTEIN HYDROLYS 30 ML LIQUID.PKT PEG SCH (17:38)
[2024-07-20] MEDS: methylPREDNISolone NA SUCC 125 MG/2 ML VIAL IVPUSH ONE (12:21)
[2024-07-22 10:20] LABS: HEMOGLOBIN 7.2 GM/dL (11.7-16.9); MCH 31.8 pg (25.7-33.7); MCHC 32.7 g/dl (32.0-35.9); MEAN CELL VOLUME 97.3 fl (80-96); MEAN PLT VOLUME 8.2 fl (7.5-11.1); PLATELET COUNT 296 10^3/uL (134-434); RBC 2.26 M/mm3 (4.00-5.60); RDW 17.7 % (11.9-15.9); WHITE BLOOD COUNT 14.5 K/mm3 (4.0-10.0)
[2024-07-22 11:11] LABS: POTASSIUM 3.5 mmol/L (3.5-5.1)
[2024-07-22 11:18] LABS: CALCIUM 10.2 mg/dL (8.5-10.1)
[2024-07-22 11:19] LABS: ALBUMIN 2.3 g/dl (3.4-5.0); BLOOD UREA NITROGEN 62.7 mg/dL (7-18)
[2024-07-22 11:22] LABS: CREATININE 2.1 mg/dL (0.55-1.3)
[2024-07-22 11:24] LABS: BILIRUBIN,TOTAL 0.4 mg/dL (0.2-1); TOT PROT 6.8 g/dl (6.4-8.2)
[2024-07-22 12:35] LABS: ANISOCYTOSIS 0; HELMET CELLS 0; HOWELL-JOLLY BODIES 0; MACROCYTOSIS 0; OVALOCYTE 0; ROULEAU 0; SICKELED CELLS 0; TARGET CELLS 0; TEAR DROP CELLS 0; TOXIC GRANULATION 0
[2024-07-23 10:12] LABS: HEMATOCRIT 21.8 % (35.4-49); HEMOGLOBIN 7.3 GM/dL (11.7-16.9); MCH 32.7 pg (25.7-33.7); MCHC 33.5 g/dl (32.0-35.9); MEAN CELL VOLUME 97.5 fl (80-96); PLATELET COUNT 300 10^3/uL (134-434); RBC 2.24 M/mm3 (4.00-5.60); RDW 18.3 % (11.9-15.9); WHITE BLOOD COUNT 13.6 K/mm3 (4.0-10.0)
[2024-07-23 10:15] LABS: ADD RBC MORPHOLOGY YES
[2024-07-23 10:28] LABS: POTASSIUM 3.2 mmol/L (3.5-5.1)
[2024-07-23 10:35] LABS: ALBUMIN 2.2 g/dl (3.4-5.0); BLOOD UREA NITROGEN 64.8 mg/dL (7-18); CALCIUM 9.8 mg/dL (8.5-10.1)
[2024-07-23 10:40] LABS: BILIRUBIN,TOTAL 0.6 mg/dL (0.2-1); TOT PROT 6.6 g/dl (6.4-8.2)
[2024-07-23 11:56] LABS: PLATELET ESTIMATE ADEQUATE
[2024-07-23] MEDS: POTASSIUM CHLORIDE ORAL LIQUID 20 MEQ/15 ML GT ONE (14:11)
[2024-07-23] MEDS: PAMIDRONATE DISODIUM 60 MG in SODIUM CHLORIDE 500 ML IVPB ONE (18:02)
[2024-07-24 08:12] LABS: POTASSIUM 3.3 mmol/L (3.5-5.1)
[2024-07-24 08:14] LABS: BASO % 0.2 % (0-2.0); EOS % 3.8 % (0-4.5); HEMATOCRIT 21.4 % (35.4-49); HEMOGLOBIN 7.2 GM/dL (11.7-16.9); LYMPH % 11.2 % (8-40); MCH 32.9 pg (25.7-33.7); MCHC 33.8 g/dl (32.0-35.9); MEAN CELL VOLUME 97.5 fl (80-96); MEAN PLT VOLUME 7.9 fl (7.5-11.1); MONO % 17.2 % (3.8-10.2); NEUT % 67.6 % (42.8-82.8); PLATELET COUNT 330 10^3/uL (134-434); RBC 2.19 M/mm3 (4.00-5.60); RDW 17.9 % (11.9-15.9); WHITE BLOOD COUNT 13.4 K/mm3 (4.0-10.0)
[2024-07-24 08:17] LABS: CALCIUM 9.9 mg/dL (8.5-10.1)
[2024-07-24 08:18] LABS: ALBUMIN 2.2 g/dl (3.4-5.0); BLOOD UREA NITROGEN 62.6 mg/dL (7-18)
[2024-07-24 08:20] LABS: PHOSPHOROUS 3.5 mg/dL (2.5-4.9)
[2024-07-24 08:21] LABS: MAGNESIUM 2.1 mg/dL (1.8-2.4)
[2024-07-24 08:22] LABS: BILIRUBIN,TOTAL 0.3 mg/dL (0.2-1); TOT PROT 6.4 g/dl (6.4-8.2)
[2024-07-24] MEDS: POTASSIUM CHLORIDE ORAL LIQUID 20 MEQ/15 ML PO SCH (17:51)
[2024-07-24] MEDS ORDERED: INSULIN ASPART SLIDING SCALE (NOVOLOG) 1 VIAL SQ ONE (18:55)
[2024-07-26 09:49] LABS: BASO % 0.3 % (0-2.0); EOS % 3.8 % (0-4.5); HEMATOCRIT 23.4 % (35.4-49); HEMOGLOBIN 7.7 GM/dL (11.7-16.9); LYMPH % 13.3 % (8-40); MCH 32.2 pg (25.7-33.7); MEAN CELL VOLUME 97.5 fl (80-96); MEAN PLT VOLUME 7.3 fl (7.5-11.1); MONO % 14.3 % (3.8-10.2); NEUT % 68.3 % (42.8-82.8); PLATELET COUNT 340 10^3/uL (134-434); RDW 18.8 % (11.9-15.9); WHITE BLOOD COUNT 13.4 K/mm3 (4.0-10.0)
[2024-07-26 10:11] LABS: POTASSIUM 3.5 mmol/L (3.5-5.1)
[2024-07-26 10:22] LABS: ALBUMIN 2.7 g/dl (3.4-5.0); BLOOD UREA NITROGEN 56.6 mg/dL (7-18); CALCIUM 10.9 mg/dL (8.5-10.1); MAGNESIUM 2.5 mg/dL (1.8-2.4)
[2024-07-26 10:26] LABS: PHOSPHOROUS 3.9 mg/dL (2.5-4.9)
[2024-07-26 10:27] LABS: BILIRUBIN,TOTAL 0.3 mg/dL (0.2-1); TOT PROT 7.3 g/dl (6.4-8.2)
[2024-07-26] MEDS: POLYETHYLENE GLYCOL (HEALTHYLAX) 3350 17 GM PACKET GT PRN (11:05)
[2024-07-26] MEDS: LORazepam 1 MG TABLET PO PRN (18:49)
[2024-07-27 09:24] VITALS: BP 111/67; PULSE 90; TEMP 97.9
[2024-07-27 15:49] VITALS: RESP 19
== END 2024-07-27 17:27 | DRG 207 ==
LOC: JER 17:57 → JERBED 23:47 → J5S 07-12 02:17 → J6W 07-24 10:28
PROVIDERS: ADMIT Internal Medicine; ATTEND Internal Medicine
PROC: 5A1955Z Respiratory Ventilation, Greater than 96 Consecutive Hours (ICD-10-PCS; principal; 2024-07-11)
DX: J95.851 Ventilator associated pneumonia (principal); L89.153 Pressure ulcer of sacral region, stage 3; N17.9 Acute kidney failure, unspecified; G93.1 Anoxic brain damage, not elsewhere classified; Z99.11 Dependence on respirator [ventilator] status; J96.11 Chronic respiratory failure with hypoxia; E23.2 Diabetes insipidus; Y83.8 Other surgical procedures as the cause of abnormal reaction of the patient, or of later complication, without mention of misadventure at the time of the procedure; D64.9 Anemia, unspecified; R33.8 Other retention of urine; Z86.74 Personal history of sudden cardiac arrest; N40.0 Benign prostatic hyperplasia without lower urinary tract symptoms; I48.91 Unspecified atrial fibrillation; D63.8 Anemia in other chronic diseases classified elsewhere; E11.22 Type 2 diabetes mellitus with diabetic chronic kidney disease; I12.9 Hypertensive chronic kidney disease with stage 1 through stage 4 chronic kidney disease, or unspecified chronic kidney disease; N18.9 Chronic kidney disease, unspecified; I95.89 Other hypotension; H16.12 Filamentary keratitis; J44.9 Chronic obstructive pulmonary disease, unspecified; Z93.1 Gastrostomy status; Z79.4 Long term (current) use of insulin; E83.52 Hypercalcemia
CPT/HCPCS: 36415; 71045-TC-FY; 76775-TC; 76856-TC; 77074-TC-FY; 80053; 81003; 82306; 82310; 82803; 82962; 83520; 83540; 83550; 83605; 83690; 83735; 83970; 84100; 84153; 84155; 84165; 84484; 85025; 85045; 85610; 85651; 85730; 86160; 86256; 86850; 86900; 86901; 87040; 87070; 87086; 87184; 87186; 87205; 87324; 87449; 93005; 93010; 94002; 94640; 97116-GP; 97161-GP; 99285-25; J1644

== ENCOUNTER 2024-07-31 11:26 | Inpatient (IN) | payer OTHER ==
[2024-07-31 13:17] LABS: VENOUS BASE EXCESS -2.4 mmol/L (-2-2); VENOUS O2 SATURATION 94.4 % (70-80); VENOUS PCO2 47.4 mmHg (38-52); VENOUS PH 7.319 (7.310-7.410)
[2024-07-31 13:20] VITALS: BMI 27.8
[2024-07-31 13:25] LABS: HEMATOCRIT 27.5 % (35.4-49); MCH 32.5 pg (25.7-33.7); MCHC 32.7 g/dl (32.0-35.9); MEAN CELL VOLUME 99.3 fl (80-96); MEAN PLT VOLUME 8.3 fl (7.5-11.1); PLATELET COUNT 322 10^3/uL (134-434); RBC 2.77 M/mm3 (4.00-5.60); RDW 18.7 % (11.9-15.9); WHITE BLOOD COUNT 15.5 K/mm3 (4.0-10.0)
[2024-07-31 14:22] LABS: ANISOCYTOSIS 0; MACROCYTOSIS 0
[2024-07-31 14:46] LABS: ALBUMIN 2.9 g/dl (3.4-5.0); BILIRUBIN,TOTAL 0.2 mg/dL (0.2-1); BLOOD UREA NITROGEN 76.2 mg/dL (7-18); CALCIUM 11.4 mg/dL (8.5-10.1); CREATININE 2.1 mg/dL (0.55-1.3); N-TERMINAL BNP 147.7 pg/ml (5-125); TOT PROT 7.8 g/dl (6.4-8.2)
[2024-07-31] MEDS ORDERED: LEVALBUTEROL HCL 0.63 MG/3 ML VIAL.NEB. IH PRN (15:04)
[2024-07-31] MEDS ORDERED: ACETAMINOPHEN 325 MG TABLET (FP) PO PRN (15:04)
[2024-07-31] MEDS ORDERED: IPRATROPIUM BR 0.02% 0.5 MG/2.5 ML VIAL.NEB. NEB ONE ×2 (16:36→19:57)
[2024-07-31] MEDS ORDERED: HEPARIN NA (PORCINE) 5,000 UNITS/ML 1ML VIAL ONE ×2 (16:36→22:13)
[2024-07-31] MEDS: ERYTHROMYCIN 0.5% OPHTHALMIC OINTMENT 3.5 GM TUBE OU SCH (16:37)
[2024-07-31] MEDS: IPRATROPIUM BR 0.02% 0.5 MG/2.5 ML VIAL.NEB. NEB SCH (17:27)
[2024-07-31] MEDS: HEPARIN NA (PORCINE) 5,000 UNITS/ML 1ML VIAL SQ SCH (17:27)
[2024-07-31] MEDS: LACTATED RINGERS SOLUTION 1,000 ML/1,000 ML INFUS.BAG IV SCH (18:12)
[2024-07-31] MEDS ORDERED: levETIRAcetam 500 MG/5 ML INJECTION VIAL IVPB ONE (22:12)
[2024-07-31] MEDS: levETIRAcetam 500 MG/5 ML ORAL SOLUTION (UNIT-DOSE CUPS) GT SCH (23:15)
[2024-07-31] MEDS: DOXAZOSIN MESYLATE 4 MG TABLET GT SCH (23:15)
[2024-07-31] MEDS ORDERED: ACETAMINOPHEN 650 MG/20.3 ML ORAL SOLUTION (CUPS) ONE (23:52)
[2024-08-01] MEDS: ACETAMINOPHEN 650 MG/20.3 ML ORAL SOLUTION (CUPS) GT PRN (00:18)
[2024-08-01] MEDS ORDERED: LORazepam 1 MG TABLET ONE ×2 (05:01→14:10)
[2024-08-01] MEDS: LORazepam 1 MG TABLET PO PRN (05:11)
[2024-08-01 08:39] LABS: BASO % 0.4 % (0-2.0); EOS % 2.9 % (0-4.5); HEMOGLOBIN 8.7 GM/dL (11.7-16.9); LYMPH % 9.4 % (8-40); MCHC 32.1 g/dl (32.0-35.9); MEAN CELL VOLUME 99.8 fl (80-96); MEAN PLT VOLUME 8.5 fl (7.5-11.1); MONO % 13.7 % (3.8-10.2); NEUT % 73.6 % (42.8-82.8); PLATELET COUNT 303 10^3/uL (134-434); RDW 18.9 % (11.9-15.9)
[2024-08-01 09:01] LABS: POTASSIUM 4.2 mmol/L (3.5-5.1)
[2024-08-01 09:12] LABS: CALCIUM 11.2 mg/dL (8.5-10.1)
[2024-08-01 09:13] LABS: BLOOD UREA NITROGEN 72.1 mg/dL (7-18)
[2024-08-01] MEDS: LACTOBACILLUS ACIDOPHILUS 1 TABLET GT SCH (10:00)
[2024-08-01] MEDS ORDERED: ZINC SULFATE 220 MG TABLET GT SCH (10:09)
[2024-08-01] MEDS ORDERED: IPRATROPIUM BR 0.02% 0.5 MG/2.5 ML VIAL.NEB. NEB ONE ×3 (10:58→20:45)
[2024-08-01] MEDS: FERROUS SO4 300 MG/5 ML ORAL SOLN UNIT DOSE CUPS GT SCH (11:00)
[2024-08-01] MEDS: POLYETHYLENE GLYCOL (HEALTHYLAX) 3350 17 GM PACKET GT SCH (11:14)
[2024-08-01] MEDS ORDERED: POLYETHYLENE GLYCOL (HEALTHYLAX) 3350 17 GM PACKET ONE (11:27)
[2024-08-01] MEDS ORDERED: HYDROmorphone HCl 2 MG/ML VIAL ONE ×2 (11:49→23:44)
[2024-08-01] MEDS ORDERED: PIPERACILLIN/TAZOB 2.25 GM 2.25 GM/50 ML BAG IVPB ONE (11:50)
[2024-08-01] MEDS ORDERED: HYDROCORTISONE SOD SUCCINATE 100 MG/2 ML VIAL ONE (11:50)
[2024-08-01] MEDS ORDERED: methylPREDNISolone NA SUCC 40 MG/1 ML VIAL ONE (11:56)
[2024-08-01] MEDS: PIPERACILLIN/TAZOB 2.25 GM 2.25 GM in DEXTROSE 5%-WATER - 50 ML IVPB ONE (12:15)
[2024-08-01] MEDS: HYDROmorphone HCl 2 MG/ML VIAL IVPUSH ONE (12:15)
[2024-08-01] MEDS: FINASTERIDE 5 MG TABLET (FP) GT SCH (12:15)
[2024-08-01] MEDS: methylPREDNISolone NA SUCC 40 MG/1 ML VIAL IVPUSH ONE (12:15)
[2024-08-01 12:23] LABS: MAGNESIUM 2.8 mg/dL (1.8-2.4)
[2024-08-01 12:27] LABS: PHOSPHOROUS 3.6 mg/dL (2.5-4.9)
[2024-08-01] MEDS ORDERED: LEVALBUTEROL HCL 0.63 MG/3 ML VIAL.NEB. IH ONE ×2 (15:46→20:45)
[2024-08-01] MEDS: LEVALBUTEROL HCL 0.63 MG/3 ML VIAL.NEB. IH SCH (16:01)
[2024-08-01] MEDS ORDERED: ACETAMINOPHEN 650 MG/20.3 ML ORAL SOLUTION (CUPS) ONE ×2 (19:07→23:44)
[2024-08-01] MEDS ORDERED: HEPARIN NA (PORCINE) 5,000 UNITS/ML 1ML VIAL ONE ×2 (19:07→23:45)
[2024-08-01] MEDS: ACETAMINOPHEN 650 MG/20.3 ML ORAL SOLUTION (CUPS) GT ONE (19:16)
[2024-08-01] MEDS: ZINC SULFATE 220 MG CAPSULE (FP) GT SCH (20:44)
[2024-08-02] MEDS: ACETAMINOPHEN 650 MG/20.3 ML ORAL SOLUTION (CUPS) PO ONE (00:21)
[2024-08-02] MEDS: HYDROmorphone HCl 2 MG/ML VIAL IVPUSH ONE ×2 (00:27→09:25)
[2024-08-02] MEDS ORDERED: HYDROmorphone HCl 2 MG/ML VIAL IVPUSH PRN (09:19)
[2024-08-02] MEDS: ZINC SULFATE 220 MG CAPSULE (FP) GT SCH (09:26)
[2024-08-02] MEDS: methylPREDNISolone NA SUCC 40 MG/1 ML VIAL IVPUSH SCH (09:27)
[2024-08-02 11:09] LABS: BASO % 0.1 % (0-2.0); HEMATOCRIT 27.4 % (35.4-49); HEMOGLOBIN 8.7 GM/dL (11.7-16.9); MCH 31.7 pg (25.7-33.7); MCHC 31.8 g/dl (32.0-35.9); MEAN CELL VOLUME 99.7 fl (80-96); MEAN PLT VOLUME 8.2 fl (7.5-11.1); MONO % 13.5 % (3.8-10.2); NEUT % 83.4 % (42.8-82.8); PLATELET COUNT 269 10^3/uL (134-434); RBC 2.75 M/mm3 (4.00-5.60); RDW 18.9 % (11.9-15.9)
[2024-08-02 11:19] LABS: WHITE BLOOD COUNT 30.3 K/mm3 (4.0-10.0)
[2024-08-02 11:31] LABS: ANISOCYTOSIS 0; MACROCYTOSIS 0; POTASSIUM 4.4 mmol/L (3.5-5.1)
[2024-08-02 11:33] LABS: CALCIUM 11.5 mg/dL (8.5-10.1)
[2024-08-02 11:35] LABS: ALBUMIN 2.9 g/dl (3.4-5.0); BLOOD UREA NITROGEN 72.1 mg/dL (7-18)
[2024-08-02 11:38] LABS: CREATININE 2.2 mg/dL (0.55-1.3)
[2024-08-02 11:39] LABS: BILIRUBIN,TOTAL 0.3 mg/dL (0.2-1)
[2024-08-02] MEDS: PIPERACILLIN/TAZOB 2.25 GM 2.25 GM in DEXTROSE 5%-WATER - 50 ML IVPB SCH (16:05)
[2024-08-02 17:03] LABS: URINE COLOR YELLOW
[2024-08-02 17:04] LABS: EPI CELLS 20.1 /uL (0-25.1); HYALINE CASTS 2.77 /uL (0-3.1); PH,URINE 5.5 (5.0-8.0); URINE APPEARANCE CLOUDY; URINE BACTERIA 24.6 /uL (0-1359); URINE BILIRUBIN NEGATIVE (NEGATIVE); URINE GLUCOSE (UA) 100 (NEGATIVE); URINE KETONE NEGATIVE (NEGATIVE); URINE LEUK ESTERASE 3+ (NEGATIVE); URINE NITRITE NEGATIVE (NEGATIVE); URINE PROTEIN 30 (NEGATIVE); URINE RBC 915.7 /uL (0-23.9); URINE UROBILINOGEN 0.2 mg/dL (0.2-1.0); URINE WBC 210.8 /uL (0-25.8)
[2024-08-02] MEDS: PAMIDRONATE DISODIUM 60 MG in SODIUM CHLORIDE 500 ML IVPB ONE (22:00)
[2024-08-02 22:06] LABS: PARATHYROID HORM INTACT 7 pg/mL (15-65)
[2024-08-03] MEDS: AMINO ACIDS/PROTEIN HYDROLYS 30 ML LIQUID.PKT PEG SCH (07:47)
[2024-08-03 10:30] LABS: HEMATOCRIT 25.8 % (35.4-49); HEMOGLOBIN 8.1 GM/dL (11.7-16.9); MCH 31.8 pg (25.7-33.7); MCHC 31.4 g/dl (32.0-35.9); MEAN CELL VOLUME 101.1 fl (80-96); MEAN PLT VOLUME 8.7 fl (7.5-11.1); PLATELET COUNT 269 10^3/uL (134-434); RBC 2.55 M/mm3 (4.00-5.60); RDW 19.2 % (11.9-15.9); WHITE BLOOD COUNT 26.5 K/mm3 (4.0-10.0)
[2024-08-03 10:41] LABS: POTASSIUM 4.6 mmol/L (3.5-5.1)
[2024-08-03 10:46] LABS: ALBUMIN 2.8 g/dl (3.4-5.0); CALCIUM 11.1 mg/dL (8.5-10.1)
[2024-08-03 10:47] LABS: BLOOD UREA NITROGEN 80.2 mg/dL (7-18)
[2024-08-03 10:49] LABS: CREATININE 2.2 mg/dL (0.55-1.3); PHOSPHOROUS 3.4 mg/dL (2.5-4.9)
[2024-08-03 10:50] LABS: BILIRUBIN,TOTAL 0.3 mg/dL (0.2-1); TOT PROT 7.8 g/dl (6.4-8.2)
[2024-08-03] MEDS: LORazepam 2 MG/ML SDV VIAL IVPUSH PRN (11:23)
[2024-08-03 11:27] LABS: ANISOCYTOSIS 0; HELMET CELLS 0; HOWELL-JOLLY BODIES 0; MACROCYTOSIS 0; OVALOCYTE 0; ROULEAU 0; SICKELED CELLS 0; TARGET CELLS 0; TEAR DROP CELLS 0; TOXIC GRANULATION 0
[2024-08-04 09:25] LABS: HEMATOCRIT 26.1 % (35.4-49); HEMOGLOBIN 8.3 GM/dL (11.7-16.9); MCH 32.3 pg (25.7-33.7); MEAN CELL VOLUME 101.2 fl (80-96); MEAN PLT VOLUME 8.6 fl (7.5-11.1); PLATELET COUNT 237 10^3/uL (134-434); RBC 2.58 M/mm3 (4.00-5.60); RDW 18.7 % (11.9-15.9); WHITE BLOOD COUNT 25.8 K/mm3 (4.0-10.0)
[2024-08-04 09:44] LABS: POTASSIUM 4.8 mmol/L (3.5-5.1)
[2024-08-04 09:49] LABS: ALBUMIN 2.8 g/dl (3.4-5.0); BLOOD UREA NITROGEN 82.7 mg/dL (7-18); CALCIUM 10.8 mg/dL (8.5-10.1)
[2024-08-04 09:52] LABS: CREATININE 2.3 mg/dL (0.55-1.3)
[2024-08-04 09:54] LABS: BILIRUBIN,TOTAL 0.4 mg/dL (0.2-1); TOT PROT 7.9 g/dl (6.4-8.2)
[2024-08-04 10:26] LABS: ANISOCYTOSIS 0; MACROCYTOSIS 1+
[2024-08-04] MEDS ORDERED: PIPERACILLIN/TAZOBACTAM 2.25 GM VIAL IVPB ONE (20:02)
[2024-08-05 07:55] LABS: HEMATOCRIT 25.5 % (35.4-49); HEMOGLOBIN 8.3 GM/dL (11.7-16.9); MCH 33.2 pg (25.7-33.7); MCHC 32.4 g/dl (32.0-35.9); MEAN CELL VOLUME 102.4 fl (80-96); MEAN PLT VOLUME 8.7 fl (7.5-11.1); PLATELET COUNT 233 10^3/uL (134-434); RBC 2.49 M/mm3 (4.00-5.60); RDW 18.8 % (11.9-15.9); WHITE BLOOD COUNT 23.7 K/mm3 (4.0-10.0)
[2024-08-05 08:05] LABS: POTASSIUM 4.8 mmol/L (3.5-5.1)
[2024-08-05 08:08] LABS: ALBUMIN 2.7 g/dl (3.4-5.0); CALCIUM 10.8 mg/dL (8.5-10.1)
[2024-08-05 08:12] LABS: CREATININE 2.5 mg/dL (0.55-1.3)
[2024-08-05 08:13] LABS: BILIRUBIN,TOTAL 0.3 mg/dL (0.2-1); TOT PROT 7.6 g/dl (6.4-8.2)
[2024-08-05 09:20] LABS: ANISOCYTOSIS 2+; MACROCYTOSIS 2+
[2024-08-05] MEDS ORDERED: IPRATROPIUM BR 0.02% 0.5 MG/2.5 ML VIAL.NEB. NEB ONE (19:46)
[2024-08-06] MEDS: ARTIFICIAL TEARS OPHTHALMIC DROPS OU PRN (05:40)
[2024-08-06 09:07] LABS: HEMATOCRIT 26.7 % (35.4-49); HEMOGLOBIN 8.6 GM/dL (11.7-16.9); MCH 33.1 pg (25.7-33.7); MCHC 32.2 g/dl (32.0-35.9); MEAN CELL VOLUME 102.8 fl (80-96); MEAN PLT VOLUME 8.6 fl (7.5-11.1); PLATELET COUNT 228 10^3/uL (134-434); RDW 18.3 % (11.9-15.9); WHITE BLOOD COUNT 20.5 K/mm3 (4.0-10.0)
[2024-08-06 09:16] LABS: POTASSIUM 4.5 mmol/L (3.5-5.1)
[2024-08-06 09:28] LABS: ALBUMIN 2.7 g/dl (3.4-5.0); CALCIUM 10.7 mg/dL (8.5-10.1)
[2024-08-06 09:29] LABS: BLOOD UREA NITROGEN 100.1 mg/dL (7-18); MAGNESIUM 3.2 mg/dL (1.8-2.4)
[2024-08-06 09:32] LABS: CREATININE 2.6 mg/dL (0.55-1.3); PHOSPHOROUS 4.6 mg/dL (2.5-4.9)
[2024-08-06 09:33] LABS: BILIRUBIN,TOTAL 0.3 mg/dL (0.2-1); TOT PROT 7.5 g/dl (6.4-8.2)
[2024-08-06 10:55] LABS: ANISOCYTOSIS 1+; MACROCYTOSIS 1+
[2024-08-06] MEDS: DEXTROSE 5%-WATER - 1,000 ML IV SCH (14:34)
[2024-08-06] MEDS: COLLAGENASE CLOSTRIDIUM HIST. 30 GRAMS TUBE TP SCH (22:56)
[2024-08-07] MEDS: IPRATROPIUM BR 0.02% 0.5 MG/2.5 ML VIAL.NEB. NEB SCH ×2 (08:42→11:30)
[2024-08-07 10:10] LABS: HEMATOCRIT 25.8 % (35.4-49); HEMOGLOBIN 8.3 GM/dL (11.7-16.9); MCH 32.8 pg (25.7-33.7); MEAN CELL VOLUME 102.4 fl (80-96); MEAN PLT VOLUME 9.1 fl (7.5-11.1); PLATELET COUNT 195 10^3/uL (134-434); RBC 2.52 M/mm3 (4.00-5.60); RDW 18.6 % (11.9-15.9); WHITE BLOOD COUNT 20.1 K/mm3 (4.0-10.0)
[2024-08-07 10:21] LABS: POTASSIUM 4.2 mmol/L (3.5-5.1)
[2024-08-07 10:24] LABS: ALBUMIN 2.6 g/dl (3.4-5.0); BLOOD UREA NITROGEN 96.7 mg/dL (7-18); MAGNESIUM 2.8 mg/dL (1.8-2.4)
[2024-08-07 10:27] LABS: CALCIUM 10.2 mg/dL (8.5-10.1); PHOSPHOROUS 5.2 mg/dL (2.5-4.9)
[2024-08-07 10:28] LABS: BILIRUBIN,TOTAL 0.3 mg/dL (0.2-1); CREATININE 2.7 mg/dL (0.55-1.3)
[2024-08-07 10:29] LABS: TOT PROT 7.2 g/dl (6.4-8.2)
[2024-08-07] MEDS: DEXTROSE 5%-WATER - 1,000 ML IV SCH (16:37)
[2024-08-07] MEDS: BUDESONIDE 0.25 MG/2ML INH SUSP VIAL NEB SCH (20:50)
[2024-08-08] MEDS: LACTATED RINGERS SOLUTION 1,000 ML/1,000 ML INFUS.BAG IV STA (05:00)
[2024-08-08] MEDS ORDERED: LACTATED RINGERS SOLUTION 1,000 ML/1,000 ML INFUS.BAG IV SCH (07:30)
[2024-08-08] MEDS: LACTATED RINGERS SOLUTION 1,000 ML/1,000 ML INFUS.BAG IV SCH (08:09)
[2024-08-08 09:02] LABS: HEMATOCRIT 23.2 % (35.4-49); HEMOGLOBIN 7.5 GM/dL (11.7-16.9); MCH 32.7 pg (25.7-33.7); MCHC 32.3 g/dl (32.0-35.9); MEAN CELL VOLUME 101.2 fl (80-96); MEAN PLT VOLUME 9.2 fl (7.5-11.1); PLATELET COUNT 178 10^3/uL (134-434); RBC 2.29 M/mm3 (4.00-5.60); RDW 18.8 % (11.9-15.9); WHITE BLOOD COUNT 19.6 K/mm3 (4.0-10.0)
[2024-08-08 09:28] LABS: POTASSIUM 3.5 mmol/L (3.5-5.1)
[2024-08-08 09:35] LABS: ALBUMIN 2.3 g/dl (3.4-5.0); CALCIUM 9.9 mg/dL (8.5-10.1)
[2024-08-08 09:36] LABS: BLOOD UREA NITROGEN 98.2 mg/dL (7-18); MAGNESIUM 2.7 mg/dL (1.8-2.4)
[2024-08-08 09:39] LABS: CREATININE 2.5 mg/dL (0.55-1.3)
[2024-08-08 09:40] LABS: BILIRUBIN,TOTAL 0.4 mg/dL (0.2-1); TOT PROT 6.5 g/dl (6.4-8.2)
[2024-08-08] MEDS: LACTATED RINGERS SOLUTION 1000 ML INFUS.BAG IV ONE (09:40)
[2024-08-08] MEDS: PIPERACILLIN/TAZOB 2.25 GM 2.25 GM in DEXTROSE 5%-WATER - 50 ML IVPB SCH ×2 (09:43→10:11)
[2024-08-08] MEDS ORDERED: POLYETHYLENE GLYCOL (HEALTHYLAX) 3350 17 GM PACKET GT PRN (10:00)
[2024-08-08 10:24] LABS: ANISOCYTOSIS 1+; MACROCYTOSIS 1+
[2024-08-09] MEDS: LACTATED RINGERS SOLUTION 1,000 ML/1,000 ML INFUS.BAG IV SCH (07:30)
[2024-08-09] MEDS: INSULIN ASPART SLIDING SCALE (NOVOLOG) 1 VIAL SQ SCH (08:04)
[2024-08-09] MEDS: MIDODRINE HCL 2.5 MG TABLET GT SCH (08:15)
[2024-08-09 09:53] LABS: POTASSIUM 3.6 mmol/L (3.5-5.1)
[2024-08-09 09:58] LABS: HEMATOCRIT 21.3 % (35.4-49); MCH 33.2 pg (25.7-33.7); MCHC 32.6 g/dl (32.0-35.9); MEAN CELL VOLUME 101.8 fl (80-96); MEAN PLT VOLUME 9.6 fl (7.5-11.1); PLATELET COUNT 177 10^3/uL (134-434); RBC 2.09 M/mm3 (4.00-5.60); RDW 18.2 % (11.9-15.9)
[2024-08-09 10:09] LABS: ALBUMIN 2.2 g/dl (3.4-5.0); BLOOD UREA NITROGEN 83.2 mg/dL (7-18); CALCIUM 10.9 mg/dL (8.5-10.1)
[2024-08-09 10:12] LABS: CREATININE 2.1 mg/dL (0.55-1.3)
[2024-08-09 10:14] LABS: BILIRUBIN,TOTAL 0.2 mg/dL (0.2-1); TOT PROT 6.2 g/dl (6.4-8.2)
[2024-08-09 10:46] LABS: ANISOCYTOSIS 2+; MACROCYTOSIS 0
[2024-08-09] MEDS: DEXTROSE 5%-WATER - 1,000 ML IV SCH (12:11)
[2024-08-09] MEDS ORDERED: INSULIN (LEVEMIR) 100 UNITS/ML UNITS SQ SCH (22:00)
[2024-08-10] MEDS: MIDODRINE HCL 2.5 MG TABLET GT SCH (10:23)
[2024-08-10 10:30] LABS: HEMATOCRIT 22.2 % (35.4-49); HEMOGLOBIN 7.2 GM/dL (11.7-16.9); INR 1.01 (0.83-1.09); MCH 33.1 pg (25.7-33.7); MCHC 32.5 g/dl (32.0-35.9); MEAN CELL VOLUME 101.8 fl (80-96); MEAN PLT VOLUME 9.2 fl (7.5-11.1); PLATELET COUNT 201 10^3/uL (134-434); PROTHROMBIN TIME (PATIENT) 11.4 SEC (9.7-13.0); RBC 2.18 M/mm3 (4.00-5.60); RDW 18.6 % (11.9-15.9); WHITE BLOOD COUNT 15.2 K/mm3 (4.0-10.0)
[2024-08-10 11:06] LABS: ANISOCYTOSIS 2+; MACROCYTOSIS 2+
[2024-08-10 12:35] LABS: POTASSIUM 3.4 mmol/L (3.5-5.1)
[2024-08-10 12:37] LABS: CALCIUM 10.9 mg/dL (8.5-10.1)
[2024-08-10 12:38] LABS: ALBUMIN 2.3 g/dl (3.4-5.0); BLOOD UREA NITROGEN 67.9 mg/dL (7-18); MAGNESIUM 2.5 mg/dL (1.8-2.4)
[2024-08-10 12:41] LABS: PHOSPHOROUS 3.8 mg/dL (2.5-4.9)
[2024-08-10 12:42] LABS: BILIRUBIN,TOTAL 0.2 mg/dL (0.2-1); TOT PROT 6.7 g/dl (6.4-8.2)
[2024-08-10] MEDS: POTASSIUM CHLORIDE ORAL LIQUID 20 MEQ/15 ML GT ONE (21:45)
[2024-08-11] MEDS ORDERED: IPRATROPIUM BR 0.02% 0.5 MG/2.5 ML VIAL.NEB. NEB ONE (07:31)
[2024-08-11 09:41] LABS: HEMOGLOBIN 7.5 GM/dL (11.7-16.9); MCHC 32.7 g/dl (32.0-35.9); MEAN CELL VOLUME 100.9 fl (80-96); MEAN PLT VOLUME 9.1 fl (7.5-11.1); PLATELET COUNT 236 10^3/uL (134-434); RBC 2.28 M/mm3 (4.00-5.60); RDW 18.5 % (11.9-15.9); WHITE BLOOD COUNT 16.6 K/mm3 (4.0-10.0)
[2024-08-11 10:03] LABS: POTASSIUM 4.1 mmol/L (3.5-5.1)
[2024-08-11 10:09] LABS: BLOOD UREA NITROGEN 66.4 mg/dL (7-18); MAGNESIUM 2.6 mg/dL (1.8-2.4)
[2024-08-11 10:12] LABS: CREATININE 1.9 mg/dL (0.55-1.3); PHOSPHOROUS 3.1 mg/dL (2.5-4.9)
[2024-08-11 10:37] LABS: ANISOCYTOSIS 2+; MACROCYTOSIS 2+
[2024-08-11] MEDS: DEXTROSE 5%-WATER - 1,000 ML IV SCH (12:30)
[2024-08-11] MEDS: SODIUM CHLORIDE 0.45% 1,000 ML IV SCH (13:49)
[2024-08-12 09:11] LABS: HEMOGLOBIN 7.4 GM/dL (11.7-16.9); MCH 32.6 pg (25.7-33.7); MEAN CELL VOLUME 101.8 fl (80-96); MEAN PLT VOLUME 8.6 fl (7.5-11.1); PLATELET COUNT 251 10^3/uL (134-434); RBC 2.26 M/mm3 (4.00-5.60); RDW 18.8 % (11.9-15.9); WHITE BLOOD COUNT 15.8 K/mm3 (4.0-10.0)
[2024-08-12 09:42] LABS: POTASSIUM 3.9 mmol/L (3.5-5.1)
[2024-08-12 09:47] LABS: ALBUMIN 2.4 g/dl (3.4-5.0)
[2024-08-12 09:48] LABS: CALCIUM 12.4 mg/dL (8.5-10.1)
[2024-08-12 09:50] LABS: BLOOD UREA NITROGEN 62.4 mg/dL (7-18)
[2024-08-12 09:51] LABS: MAGNESIUM 2.5 mg/dL (1.8-2.4)
[2024-08-12 09:54] LABS: CREATININE 1.9 mg/dL (0.55-1.3); PHOSPHOROUS 3.4 mg/dL (2.5-4.9); TOT PROT 7.1 g/dl (6.4-8.2)
[2024-08-12 09:56] LABS: BILIRUBIN,TOTAL 0.2 mg/dL (0.2-1)
[2024-08-12 10:01] LABS: ANISOCYTOSIS 0; MACROCYTOSIS 0
[2024-08-12] MEDS: SODIUM CHLORIDE IVPB SCH (17:28)
[2024-08-12] MEDS: PAMIDRONATE DISODIUM IVPB SCH (17:28)
[2024-08-13 10:15] LABS: HEMATOCRIT 23.4 % (35.4-49); HEMOGLOBIN 7.6 GM/dL (11.7-16.9); MCH 33.5 pg (25.7-33.7); MCHC 32.5 g/dl (32.0-35.9); MEAN CELL VOLUME 102.8 fl (80-96); MEAN PLT VOLUME 8.7 fl (7.5-11.1); PLATELET COUNT 283 10^3/uL (134-434); RBC 2.28 M/mm3 (4.00-5.60); RDW 18.9 % (11.9-15.9); WHITE BLOOD COUNT 17.6 K/mm3 (4.0-10.0)
[2024-08-13 10:27] LABS: POTASSIUM 3.8 mmol/L (3.5-5.1)
[2024-08-13 10:31] LABS: ALBUMIN 2.4 g/dl (3.4-5.0)
[2024-08-13 10:32] LABS: CALCIUM 11.6 mg/dL (8.5-10.1); MAGNESIUM 2.3 mg/dL (1.8-2.4)
[2024-08-13 10:34] LABS: CREATININE 1.8 mg/dL (0.55-1.3)
[2024-08-13 10:35] LABS: PHOSPHOROUS 3.2 mg/dL (2.5-4.9)
[2024-08-13 10:36] LABS: BILIRUBIN,TOTAL 0.2 mg/dL (0.2-1); TOT PROT 7.1 g/dl (6.4-8.2)
[2024-08-13 11:34] LABS: ANISOCYTOSIS 3+; MACROCYTOSIS 0
[2024-08-14 11:35] LABS: HEMATOCRIT 25.2 % (35.4-49); HEMOGLOBIN 8.4 GM/dL (11.7-16.9); MCH 33.7 pg (25.7-33.7); MCHC 33.5 g/dl (32.0-35.9); MEAN CELL VOLUME 100.5 fl (80-96); MEAN PLT VOLUME 8.6 fl (7.5-11.1); PLATELET COUNT 310 10^3/uL (134-434); RDW 18.9 % (11.9-15.9); WHITE BLOOD COUNT 15.1 K/mm3 (4.0-10.0)
[2024-08-14 12:06] LABS: POTASSIUM 3.5 mmol/L (3.5-5.1)
[2024-08-14 12:09] LABS: ALBUMIN 2.5 g/dl (3.4-5.0); BLOOD UREA NITROGEN 55.9 mg/dL (7-18); MAGNESIUM 2.4 mg/dL (1.8-2.4)
[2024-08-14 12:12] LABS: CREATININE 1.9 mg/dL (0.55-1.3); PHOSPHOROUS 3.3 mg/dL (2.5-4.9)
[2024-08-14 12:13] LABS: BILIRUBIN,TOTAL 0.3 mg/dL (0.2-1); TOT PROT 7.4 g/dl (6.4-8.2)
[2024-08-14 12:22] LABS: ANISOCYTOSIS 0; MACROCYTOSIS 0
[2024-08-15 08:31] LABS: HEMATOCRIT 22.1 % (35.4-49); HEMOGLOBIN 7.8 GM/dL (11.7-16.9); MCH 35.3 pg (25.7-33.7); MCHC 35.4 g/dl (32.0-35.9); MEAN CELL VOLUME 99.7 fl (80-96); MEAN PLT VOLUME 8.6 fl (7.5-11.1); PLATELET COUNT 321 10^3/uL (134-434); RBC 2.21 M/mm3 (4.00-5.60); RDW 19.2 % (11.9-15.9); WHITE BLOOD COUNT 15.6 K/mm3 (4.0-10.0)
[2024-08-15 08:47] LABS: POTASSIUM 3.5 mmol/L (3.5-5.1)
[2024-08-15 08:52] LABS: ALBUMIN 2.5 g/dl (3.4-5.0); BLOOD UREA NITROGEN 56.2 mg/dL (7-18); CALCIUM 11.8 mg/dL (8.5-10.1); MAGNESIUM 2.2 mg/dL (1.8-2.4)
[2024-08-15 08:55] LABS: CREATININE 1.9 mg/dL (0.55-1.3)
[2024-08-15 08:56] LABS: BILIRUBIN,TOTAL 0.4 mg/dL (0.2-1); PHOSPHOROUS 3.6 mg/dL (2.5-4.9); TOT PROT 7.2 g/dl (6.4-8.2)
[2024-08-15 09:24] LABS: ANISOCYTOSIS 1+; MACROCYTOSIS 1+
[2024-08-15] MEDS ORDERED: ALBUTEROL SO4 2.5/IPRATROPIUM 0.5 INH SOL 3 ML VIAL.NEB. NEB ONE (18:42)
[2024-08-15] MEDS: LORazepam 2 MG/ML SDV VIAL IVPUSH PRN (22:51)
[2024-08-16 01:11] LABS: HEMATOCRIT 22.9 % (35.4-49); HEMOGLOBIN 7.7 GM/dL (11.7-16.9); MCH 33.6 pg (25.7-33.7); MCHC 33.7 g/dl (32.0-35.9); MEAN CELL VOLUME 99.6 fl (80-96); MEAN PLT VOLUME 8.2 fl (7.5-11.1); PLATELET COUNT 340 10^3/uL (134-434); WHITE BLOOD COUNT 14.6 K/mm3 (4.0-10.0)
[2024-08-16 06:07] LABS: ANISOCYTOSIS 2+; MACROCYTOSIS 1+; ROULEAU 2+
[2024-08-16 09:20] LABS: POTASSIUM 3.7 mmol/L (3.5-5.1)
[2024-08-16 09:22] LABS: CALCIUM 12.2 mg/dL (8.5-10.1)
[2024-08-16 09:23] LABS: ALBUMIN 2.5 g/dl (3.4-5.0); BLOOD UREA NITROGEN 62.2 mg/dL (7-18); MAGNESIUM 2.5 mg/dL (1.8-2.4)
[2024-08-16 09:26] LABS: PHOSPHOROUS 4.7 mg/dL (2.5-4.9)
[2024-08-16 09:27] LABS: BILIRUBIN,TOTAL 0.3 mg/dL (0.2-1); TOT PROT 7.3 g/dl (6.4-8.2)
[2024-08-16] MEDS: PIPERACILLIN/TAZOB 3.375 GM 3.375 GM in DEXTROSE 5%-WATER - 50 ML IVPB SCH ×2 (12:15→13:56)
[2024-08-16] MEDS: PIPERACILLIN/TAZOB 2.25 GM 2.25 GM in DEXTROSE 5%-WATER - 50 ML IVPB SCH (14:20)
[2024-08-17 08:06] LABS: HEMATOCRIT 22.5 % (35.4-49); HEMOGLOBIN 7.6 GM/dL (11.7-16.9); MEAN CELL VOLUME 100.1 fl (80-96); PLATELET COUNT 331 10^3/uL (134-434); RBC 2.25 M/mm3 (4.00-5.60); RDW 19.4 % (11.9-15.9); WHITE BLOOD COUNT 15.4 K/mm3 (4.0-10.0)
[2024-08-17 08:17] LABS: POTASSIUM 3.5 mmol/L (3.5-5.1)
[2024-08-17 08:41] LABS: CALCIUM 12.2 mg/dL (8.5-10.1)
[2024-08-17 08:42] LABS: ALBUMIN 2.5 g/dl (3.4-5.0); BLOOD UREA NITROGEN 63.4 mg/dL (7-18); CREATININE 2.3 mg/dL (0.55-1.3); MAGNESIUM 2.5 mg/dL (1.8-2.4)
[2024-08-17 08:44] LABS: BILIRUBIN,TOTAL 0.3 mg/dL (0.2-1); TOT PROT 7.2 g/dl (6.4-8.2)
[2024-08-17 09:27] LABS: ANISOCYTOSIS 1+; MACROCYTOSIS 1+
[2024-08-18 09:12] LABS: HEMATOCRIT 22.2 % (35.4-49); HEMOGLOBIN 7.4 GM/dL (11.7-16.9); MCHC 33.4 g/dl (32.0-35.9); MEAN CELL VOLUME 98.8 fl (80-96); MEAN PLT VOLUME 7.7 fl (7.5-11.1); PLATELET COUNT 326 10^3/uL (134-434); RBC 2.25 M/mm3 (4.00-5.60); RDW 19.5 % (11.9-15.9); WHITE BLOOD COUNT 13.8 K/mm3 (4.0-10.0)
[2024-08-18 09:57] LABS: ALBUMIN 2.3 g/dl (3.4-5.0); BILIRUBIN,TOTAL 0.4 mg/dL (0.2-1); BLOOD UREA NITROGEN 57.6 mg/dL (7-18); CALCIUM 12.3 mg/dL (8.5-10.1); CREATININE 2.5 mg/dL (0.55-1.3); POTASSIUM 3.4 mmol/L (3.5-5.1)
[2024-08-18 10:40] LABS: ANISOCYTOSIS 1+; MACROCYTOSIS 0
[2024-08-18] MEDS: POTASSIUM CHLORIDE ORAL LIQUID 20 MEQ/15 ML PO ONE (15:39)
[2024-08-19 10:51] LABS: HEMOGLOBIN 7.4 GM/dL (11.7-16.9); MCH 33.7 pg (25.7-33.7); MCHC 33.7 g/dl (32.0-35.9); MEAN PLT VOLUME 7.7 fl (7.5-11.1); PLATELET COUNT 318 10^3/uL (134-434); RDW 19.9 % (11.9-15.9); WHITE BLOOD COUNT 13.1 K/mm3 (4.0-10.0)
[2024-08-19 11:18] LABS: ANISOCYTOSIS 0; MACROCYTOSIS 0; POTASSIUM 3.7 mmol/L (3.5-5.1)
[2024-08-19 11:20] LABS: CALCIUM 12.6 mg/dL (8.5-10.1)
[2024-08-19 11:21] LABS: ALBUMIN 2.4 g/dl (3.4-5.0); BLOOD UREA NITROGEN 64.4 mg/dL (7-18)
[2024-08-19 11:24] LABS: CREATININE 2.6 mg/dL (0.55-1.3)
[2024-08-19 11:25] LABS: BILIRUBIN,TOTAL 0.3 mg/dL (0.2-1)
[2024-08-19] MEDS: SODIUM CHLORIDE 500 ML IV STA (18:41)
[2024-08-20 10:27] LABS: HEMATOCRIT 22.9 % (35.4-49); HEMOGLOBIN 7.6 GM/dL (11.7-16.9); MCH 33.9 pg (25.7-33.7); MCHC 33.4 g/dl (32.0-35.9); MEAN CELL VOLUME 101.5 fl (80-96); MEAN PLT VOLUME 8.3 fl (7.5-11.1); PLATELET COUNT 342 10^3/uL (134-434); RBC 2.26 M/mm3 (4.00-5.60); RDW 19.8 % (11.9-15.9)
[2024-08-20 11:02] LABS: POTASSIUM 3.6 mmol/L (3.5-5.1)
[2024-08-20 11:16] LABS: ANISOCYTOSIS 2+; MACROCYTOSIS 2+
[2024-08-20 11:18] LABS: ALBUMIN 2.6 g/dl (3.4-5.0); BLOOD UREA NITROGEN 60.9 mg/dL (7-18); CALCIUM 13.1 mg/dL (8.5-10.1)
[2024-08-20 11:19] LABS: MAGNESIUM 2.6 mg/dL (1.8-2.4)
[2024-08-20 11:21] LABS: CREATININE 2.4 mg/dL (0.55-1.3)
[2024-08-20 11:23] LABS: BILIRUBIN,TOTAL 0.2 mg/dL (0.2-1); TOT PROT 7.3 g/dl (6.4-8.2)
[2024-08-20] MEDS: BANATROL PLUS POWDER PACKET PO SCH (14:55)
[2024-08-21 10:37] LABS: HEMATOCRIT 22.5 % (35.4-49); HEMOGLOBIN 7.7 GM/dL (11.7-16.9); MCH 34.4 pg (25.7-33.7); MCHC 34.3 g/dl (32.0-35.9); MEAN CELL VOLUME 100.3 fl (80-96); MEAN PLT VOLUME 8.3 fl (7.5-11.1); PLATELET COUNT 303 10^3/uL (134-434); RBC 2.24 M/mm3 (4.00-5.60); RDW 19.7 % (11.9-15.9); WHITE BLOOD COUNT 12.5 K/mm3 (4.0-10.0)
[2024-08-21 10:41] LABS: POTASSIUM 3.6 mmol/L (3.5-5.1)
[2024-08-21 10:44] LABS: CALCIUM 12.2 mg/dL (8.5-10.1)
[2024-08-21 10:46] LABS: ALBUMIN 2.5 g/dl (3.4-5.0); MAGNESIUM 2.4 mg/dL (1.8-2.4)
[2024-08-21 10:47] LABS: PHOSPHOROUS 3.6 mg/dL (2.5-4.9)
[2024-08-21 10:49] LABS: BILIRUBIN,TOTAL 0.4 mg/dL (0.2-1); CREATININE 2.2 mg/dL (0.55-1.3); TOT PROT 7.1 g/dl (6.4-8.2)
[2024-08-21 11:25] LABS: ANISOCYTOSIS 1+; MACROCYTOSIS 1+
[2024-08-21] MEDS ORDERED: PIPERACILLIN/TAZOB 2.25 GM 2.25 GM/50 ML BAG IVPB SCH (15:00)
[2024-08-22 10:42] LABS: HEMATOCRIT 22.6 % (35.4-49); HEMOGLOBIN 7.7 GM/dL (11.7-16.9); MCH 34.7 pg (25.7-33.7); MCHC 34.2 g/dl (32.0-35.9); MEAN CELL VOLUME 101.5 fl (80-96); PLATELET COUNT 292 10^3/uL (134-434); RBC 2.23 M/mm3 (4.00-5.60); RDW 19.6 % (11.9-15.9); WHITE BLOOD COUNT 13.1 K/mm3 (4.0-10.0)
[2024-08-22] MEDS: MIDODRINE HCL 5 MG TABLET GT SCH (11:10)
[2024-08-22 11:39] LABS: POTASSIUM 3.6 mmol/L (3.5-5.1)
[2024-08-22 11:45] LABS: ALBUMIN 2.6 g/dl (3.4-5.0); CALCIUM 12.8 mg/dL (8.5-10.1)
[2024-08-22 11:46] LABS: BLOOD UREA NITROGEN 54.7 mg/dL (7-18); MAGNESIUM 2.5 mg/dL (1.8-2.4)
[2024-08-22 11:49] LABS: CREATININE 2.1 mg/dL (0.55-1.3); PHOSPHOROUS 3.7 mg/dL (2.5-4.9)
[2024-08-22 11:50] LABS: BILIRUBIN,TOTAL 0.3 mg/dL (0.2-1)
[2024-08-22 12:07] LABS: ANISOCYTOSIS 1+; MACROCYTOSIS 1+
[2024-08-22] MEDS ORDERED: LORazepam 1 MG TABLET GT PRN (12:57)
[2024-08-22] MEDS: ALBUTEROL SO4 2.5/IPRATROPIUM 0.5 INH SOL 3 ML VIAL.NEB. NEB ONE (14:23)
[2024-08-23 12:00] LABS: HEMATOCRIT 22.4 % (35.4-49); HEMOGLOBIN 7.7 GM/dL (11.7-16.9); MCH 34.7 pg (25.7-33.7); MCHC 34.4 g/dl (32.0-35.9); MEAN CELL VOLUME 100.8 fl (80-96); MEAN PLT VOLUME 7.9 fl (7.5-11.1); PLATELET COUNT 290 10^3/uL (134-434); RBC 2.22 M/mm3 (4.00-5.60); RDW 19.7 % (11.9-15.9); WHITE BLOOD COUNT 13.2 K/mm3 (4.0-10.0)
[2024-08-23 12:30] LABS: POTASSIUM 3.8 mmol/L (3.5-5.1)
[2024-08-23 12:37] LABS: ALBUMIN 2.5 g/dl (3.4-5.0)
[2024-08-23 12:38] LABS: CALCIUM 13.7 mg/dL (8.5-10.1); MAGNESIUM 2.5 mg/dL (1.8-2.4)
[2024-08-23 12:41] LABS: BILIRUBIN,TOTAL 0.3 mg/dL (0.2-1); CREATININE 2.3 mg/dL (0.55-1.3); PHOSPHOROUS 3.5 mg/dL (2.5-4.9); TOT PROT 7.2 g/dl (6.4-8.2)
[2024-08-23 12:48] LABS: ANISOCYTOSIS 0; MACROCYTOSIS 0
[2024-08-23] MEDS: SODIUM CHLORIDE 1,000 ML IV SCH (17:50)
[2024-08-24] MEDS: SODIUM CHLORIDE 0.45% 1,000 ML IV SCH (17:44)
[2024-08-25 09:56] LABS: HEMATOCRIT 21.4 % (35.4-49); HEMOGLOBIN 7.3 GM/dL (11.7-16.9); MCH 34.6 pg (25.7-33.7); MCHC 34.2 g/dl (32.0-35.9); MEAN CELL VOLUME 101.3 fl (80-96); MEAN PLT VOLUME 7.6 fl (7.5-11.1); PLATELET COUNT 261 10^3/uL (134-434); RBC 2.11 M/mm3 (4.00-5.60); RDW 19.2 % (11.9-15.9); WHITE BLOOD COUNT 11.6 K/mm3 (4.0-10.0)
[2024-08-25 10:23] LABS: POTASSIUM 3.6 mmol/L (3.5-5.1)
[2024-08-25 10:25] LABS: BLOOD UREA NITROGEN 55.6 mg/dL (7-18); CALCIUM 12.3 mg/dL (8.5-10.1); MAGNESIUM 2.6 mg/dL (1.8-2.4)
[2024-08-25 10:29] LABS: CREATININE 2.1 mg/dL (0.55-1.3); PHOSPHOROUS 3.1 mg/dL (2.5-4.9)
[2024-08-26 19:06] LABS: IG A QN SERUM. 565 mg/dL (61-437)
[2024-08-27 10:15] LABS: HEMATOCRIT 23.7 % (35.4-49); HEMOGLOBIN 7.8 GM/dL (11.7-16.9); MCH 33.3 pg (25.7-33.7); MCHC 32.7 g/dl (32.0-35.9); MEAN CELL VOLUME 101.8 fl (80-96); MEAN PLT VOLUME 7.9 fl (7.5-11.1); PLATELET COUNT 271 10^3/uL (134-434); RBC 2.33 M/mm3 (4.00-5.60); RDW 19.3 % (11.9-15.9); WHITE BLOOD COUNT 13.6 K/mm3 (4.0-10.0)
[2024-08-27 10:38] LABS: POTASSIUM 3.8 mmol/L (3.5-5.1)
[2024-08-27 10:46] LABS: CALCIUM 12.9 mg/dL (8.5-10.1)
[2024-08-27 10:47] LABS: BLOOD UREA NITROGEN 46.2 mg/dL (7-18); MAGNESIUM 2.7 mg/dL (1.8-2.4)
[2024-08-27 10:50] LABS: CREATININE 2.2 mg/dL (0.55-1.3)
[2024-08-27 11:19] LABS: ANISOCYTOSIS 1+; MACROCYTOSIS 1+
[2024-08-28 10:32] LABS: HEMATOCRIT 23.3 % (35.4-49); HEMOGLOBIN 7.7 GM/dL (11.7-16.9); MCH 33.9 pg (25.7-33.7); MEAN CELL VOLUME 102.8 fl (80-96); MEAN PLT VOLUME 8.1 fl (7.5-11.1); PLATELET COUNT 271 10^3/uL (134-434); RBC 2.26 M/mm3 (4.00-5.60); RDW 19.5 % (11.9-15.9); WHITE BLOOD COUNT 15.1 K/mm3 (4.0-10.0)
[2024-08-28 10:51] LABS: POTASSIUM 3.9 mmol/L (3.5-5.1)
[2024-08-28 11:09] LABS: ALBUMIN 2.7 g/dl (3.4-5.0); ANISOCYTOSIS 1+; BLOOD UREA NITROGEN 47.2 mg/dL (7-18); CALCIUM 12.9 mg/dL (8.5-10.1); MACROCYTOSIS 1+; MAGNESIUM 2.8 mg/dL (1.8-2.4)
[2024-08-28 11:12] LABS: CREATININE 2.2 mg/dL (0.55-1.3)
[2024-08-28 11:13] LABS: PHOSPHOROUS 3.4 mg/dL (2.5-4.9)
[2024-08-28 11:14] LABS: BILIRUBIN,TOTAL 0.3 mg/dL (0.2-1); TOT PROT 7.5 g/dl (6.4-8.2)
[2024-08-29 09:59] LABS: HEMATOCRIT 25.1 % (35.4-49); HEMOGLOBIN 8.3 GM/dL (11.7-16.9); MCH 33.8 pg (25.7-33.7); MCHC 33.1 g/dl (32.0-35.9); MEAN CELL VOLUME 102.2 fl (80-96); PLATELET COUNT 261 10^3/uL (134-434); RBC 2.46 M/mm3 (4.00-5.60); WHITE BLOOD COUNT 17.4 K/mm3 (4.0-10.0)
[2024-08-29 10:19] LABS: POTASSIUM 3.9 mmol/L (3.5-5.1)
[2024-08-29 10:23] LABS: CALCIUM 12.2 mg/dL (8.5-10.1)
[2024-08-29 10:24] LABS: ALBUMIN 2.8 g/dl (3.4-5.0); BLOOD UREA NITROGEN 50.5 mg/dL (7-18); MAGNESIUM 2.6 mg/dL (1.8-2.4)
[2024-08-29 10:26] LABS: ANISOCYTOSIS 0; MACROCYTOSIS 0
[2024-08-29 10:27] LABS: CREATININE 2.3 mg/dL (0.55-1.3); PHOSPHOROUS 2.6 mg/dL (2.5-4.9)
[2024-08-29 10:29] LABS: BILIRUBIN,TOTAL 0.3 mg/dL (0.2-1); TOT PROT 7.7 g/dl (6.4-8.2)
[2024-08-29] MEDS: PIPERACILLIN/TAZOB 3.375 GM 50 ML IVPB SCH ×2 (11:19→19:50)
[2024-08-29] MEDS: PIPERACILLIN/TAZOB 3.375 GM 3.375 GM in DEXTROSE 5%-WATER - 50 ML IVPB SCH (18:01)
[2024-08-30 10:35] LABS: HEMATOCRIT 22.8 % (35.4-49); HEMOGLOBIN 7.8 GM/dL (11.7-16.9); MCH 34.9 pg (25.7-33.7); MEAN CELL VOLUME 102.8 fl (80-96); MEAN PLT VOLUME 7.8 fl (7.5-11.1); PLATELET COUNT 249 10^3/uL (134-434); RBC 2.22 M/mm3 (4.00-5.60); RDW 18.7 % (11.9-15.9); WHITE BLOOD COUNT 17.8 K/mm3 (4.0-10.0)
[2024-08-30 11:00] LABS: POTASSIUM 3.9 mmol/L (3.5-5.1)
[2024-08-30 11:05] LABS: ALBUMIN 2.6 g/dl (3.4-5.0); BLOOD UREA NITROGEN 62.8 mg/dL (7-18); CALCIUM 12.1 mg/dL (8.5-10.1); MAGNESIUM 2.8 mg/dL (1.8-2.4)
[2024-08-30 11:08] LABS: CREATININE 2.8 mg/dL (0.55-1.3); PHOSPHOROUS 3.6 mg/dL (2.5-4.9)
[2024-08-30 11:09] LABS: BILIRUBIN,TOTAL 0.2 mg/dL (0.2-1); TOT PROT 7.4 g/dl (6.4-8.2)
[2024-08-30 11:18] VITALS: TEMP 98.8
[2024-08-30 11:19] LABS: ANISOCYTOSIS 0; MACROCYTOSIS 1+
[2024-08-30 15:09] VITALS: RESP 24
[2024-08-30 15:13] VITALS: BP 107/73; PULSE 104
== END 2024-08-30 17:17 | disposition short-term general hospital (02) | DRG 207 ==
LOC: JER 11:26 → JERBED 14:45 → J6W 08-02 02:49 → J5S 08-21 10:37
PROVIDERS: ADMIT Internal Medicine
PROC: 5A1955Z Respiratory Ventilation, Greater than 96 Consecutive Hours (ICD-10-PCS; principal; 2024-07-31)
DX: J18.9 Pneumonia, unspecified organism (principal); J96.21 Acute and chronic respiratory failure with hypoxia; L89.154 Pressure ulcer of sacral region, stage 4; J96.22 Acute and chronic respiratory failure with hypercapnia; G93.1 Anoxic brain damage, not elsewhere classified; Z99.11 Dependence on respirator [ventilator] status; J44.1 Chronic obstructive pulmonary disease with (acute) exacerbation; J98.11 Atelectasis; N17.9 Acute kidney failure, unspecified; J44.0 Chronic obstructive pulmonary disease with (acute) lower respiratory infection; E87.0 Hyperosmolality and hypernatremia; J44.9 Chronic obstructive pulmonary disease, unspecified; I48.91 Unspecified atrial fibrillation; D63.8 Anemia in other chronic diseases classified elsewhere; N40.0 Benign prostatic hyperplasia without lower urinary tract symptoms; N18.9 Chronic kidney disease, unspecified; G40.909 Epilepsy, unspecified, not intractable, without status epilepticus; E11.22 Type 2 diabetes mellitus with diabetic chronic kidney disease; Z93.1 Gastrostomy status; N13.9 Obstructive and reflux uropathy, unspecified; D64.9 Anemia, unspecified; Z86.74 Personal history of sudden cardiac arrest; I12.9 Hypertensive chronic kidney disease with stage 1 through stage 4 chronic kidney disease, or unspecified chronic kidney disease
CPT/HCPCS: 0241U-QW; 36415; 71045-TC-FY; 80048; 80053; 81003; 82310; 82784; 82803; 82962; 83605; 83735; 83880; 83970; 84100; 84484; 85025; 85027; 85610; 86850; 86900; 86901; 87040; 87070; 87186; 87205; 87899; 93005; 93010; 94002; 94640; 97162-GP; 99285-25; J1644

== ENCOUNTER 2024-08-30 17:39 | Inpatient (IN) | payer OTHER ==
[2024-08-30 18:58] LABS: VENOUS BASE EXCESS -2.9 mmol/L (-2-2); VENOUS O2 SATURATION 89.1 % (70-80); VENOUS PCO2 54.5 mmHg (38-52); VENOUS PH 7.264 (7.310-7.410)
[2024-08-30 19:03] LABS: HEMATOCRIT 24.5 % (35.4-49); HEMOGLOBIN 7.9 GM/dL (11.7-16.9); MCH 33.4 pg (25.7-33.7); MCHC 32.2 g/dl (32.0-35.9); MEAN CELL VOLUME 103.7 fl (80-96); MEAN PLT VOLUME 7.7 fl (7.5-11.1); PLATELET COUNT 270 10^3/uL (134-434); RBC 2.36 M/mm3 (4.00-5.60); RDW 18.8 % (11.9-15.9); WHITE BLOOD COUNT 19.5 K/mm3 (4.0-10.0)
[2024-08-30 19:06] LABS: INR 1.06 (0.83-1.09); PROTHROMBIN TIME (PATIENT) 12.2 SEC (9.7-13.0)
[2024-08-30 19:09] LABS: ACTIVATED PTT 25.1 SECONDS (25.2-36.5)
[2024-08-30 19:13] LABS: POTASSIUM 4.3 mmol/L (3.5-5.1)
[2024-08-30 19:15] LABS: CALCIUM 11.7 mg/dL (8.5-10.1)
[2024-08-30 19:16] LABS: ALBUMIN 2.8 g/dl (3.4-5.0); BLOOD UREA NITROGEN 61.4 mg/dL (7-18)
[2024-08-30 19:19] LABS: CREATININE 2.8 mg/dL (0.55-1.3)
[2024-08-30 19:20] LABS: BILIRUBIN,TOTAL 0.2 mg/dL (0.2-1)
[2024-08-30] MEDS: ACETAMINOPHEN 1000 MG/100 ML BAG IVPB PRN (21:54)
[2024-08-30] MEDS: IPRATROPIUM BR 0.02% 0.5 MG/2.5 ML VIAL.NEB. NEB SCH ×2 (22:30→23:29)
[2024-08-30] MEDS ORDERED: PAMIDRONATE DISODIUM IVPB SCH (22:30)
[2024-08-30] MEDS ORDERED: CARBOXYMETHYLCELLULOSE SODIUM OP SCH (22:30)
[2024-08-30 23:23] LABS: N-TERMINAL BNP 205.2 pg/ml (5-125)
[2024-08-30] MEDS: LEVALBUTEROL HCL 0.63 MG/3 ML VIAL.NEB. IH SCH ×2 (23:29→23:31)
[2024-08-31] MEDS: HEPARIN NA (PORCINE) 5,000 UNITS/ML 1ML VIAL SQ SCH (00:20)
[2024-08-31] MEDS: levETIRAcetam 500 MG/5 ML ORAL SOLUTION (UNIT-DOSE CUPS) GT SCH (00:20)
[2024-08-31 03:57] LABS: EPI CELLS 8 /uL (0-25.1); HYALINE CASTS 3 /uL (0-3.1); URINE APPEARANCE CLOUDY; URINE BACTERIA 5 /uL (0-1359); URINE BILIRUBIN NEGATIVE (NEGATIVE); URINE COLOR YELLOW; URINE GLUCOSE (UA) TRACE (NEGATIVE); URINE KETONE NEGATIVE (NEGATIVE); URINE LEUK ESTERASE NEGATIVE (NEGATIVE); URINE NITRITE NEGATIVE (NEGATIVE); URINE PROTEIN 1+ (NEGATIVE); URINE RBC 13 /uL (0-23.9); URINE UROBILINOGEN 0.2 mg/dL (0.2-1.0); URINE WBC 16 /uL (0-25.8)
[2024-08-31] MEDS ORDERED: LEVALBUTEROL HCL 0.63 MG/3 ML VIAL.NEB. IH SCH (08:00)
[2024-08-31] MEDS ORDERED: ALBUTEROL SO4 0.083% IH SOL 2.5 MG/3 ML VIAL.NEB. NEB SCH (08:00)
[2024-08-31] MEDS ORDERED: IPRATROPIUM BR 0.02% 0.5 MG/2.5 ML VIAL.NEB. NEB SCH (08:00)
[2024-08-31] MEDS: BUDESONIDE 0.25 MG/2ML INH SUSP VIAL NEB SCH (08:05)
[2024-08-31] MEDS: ACETYLCYSTEINE 20% 200MG/ML 30 ML VIAL *FOR ORAL / INH USE ONLY NEB SCH (08:05)
[2024-08-31] MEDS: AMINO ACIDS/PROTEIN HYDROLYS 30 ML LIQUID.PKT PEG SCH (08:19)
[2024-08-31 09:20] LABS: HEMATOCRIT 20.9 % (35.4-49); MCH 34.2 pg (25.7-33.7); MCHC 33.1 g/dl (32.0-35.9); MEAN CELL VOLUME 103.4 fl (80-96); MEAN PLT VOLUME 8.1 fl (7.5-11.1); PLATELET COUNT 256 10^3/uL (134-434); RBC 2.02 M/mm3 (4.00-5.60); RDW 18.3 % (11.9-15.9); WHITE BLOOD COUNT 18.2 K/mm3 (4.0-10.0)
[2024-08-31 09:34] LABS: POTASSIUM 4.5 mmol/L (3.5-5.1)
[2024-08-31 09:37] LABS: ALBUMIN 2.6 g/dl (3.4-5.0)
[2024-08-31 09:38] LABS: HEMOGLOBIN 6.9 GM/dL (11.7-16.9)
[2024-08-31 09:39] LABS: BLOOD UREA NITROGEN 65.5 mg/dL (7-18); CALCIUM 11.6 mg/dL (8.5-10.1); MAGNESIUM 2.9 mg/dL (1.8-2.4)
[2024-08-31 09:41] LABS: CREATININE 2.8 mg/dL (0.55-1.3)
[2024-08-31 09:42] LABS: PHOSPHOROUS 3.7 mg/dL (2.5-4.9)
[2024-08-31 09:43] LABS: BILIRUBIN,TOTAL 0.2 mg/dL (0.2-1); TOT PROT 7.4 g/dl (6.4-8.2)
[2024-08-31] MEDS ORDERED: COLLAGENASE CLOSTRIDIUM HIST. 30 GRAMS TUBE TP SCH (10:00)
[2024-08-31] MEDS: VITAMIN B COMP W-C 1 EA TABLET (NEPHRO-VITE) GT SCH (10:16)
[2024-08-31] MEDS: LACTOBACILLUS ACIDOPHILUS 1 TABLET GT SCH (10:16)
[2024-08-31] MEDS: MIDODRINE HCL 2.5 MG TABLET GT SCH (10:16)
[2024-08-31] MEDS: POLYETHYLENE GLYCOL (HEALTHYLAX) 3350 17 GM PACKET GT SCH (10:17)
[2024-08-31] MEDS: FERROUS SO4 300 MG/5 ML ORAL SOLN UNIT DOSE CUPS GT SCH (10:17)
[2024-08-31] MEDS: FOLIC ACID 1 MG TABLET (FP) GT SCH (10:17)
[2024-08-31] MEDS: FINASTERIDE 5 MG TABLET (FP) GT SCH (10:17)
[2024-08-31] MEDS: ZINC SULFATE 220 MG CAPSULE (FP) GT SCH (10:17)
[2024-08-31] MEDS: ASCORBIC ACID 250 MG TABLET (FP) GT SCH (10:18)
[2024-08-31] MEDS: metroNIDAZOLE 250 MG TABLET PEG SCH (18:55)
[2024-08-31] MEDS: DOXAZOSIN MESYLATE 4 MG TABLET GT SCH (21:06)
[2024-08-31] MEDS: INSULIN (LEVEMIR) 100 UNITS/ML UNITS SQ SCH (21:07)
[2024-09-01] MEDS: ACETYLCYSTEINE 20% 200MG/ML 4 ML VIAL *FOR ORAL / INH USE ONLY NEB SCH (07:15)
[2024-09-01 09:59] LABS: POTASSIUM 3.8 mmol/L (3.5-5.1)
[2024-09-01 10:00] LABS: BLOOD UREA NITROGEN 66.6 mg/dL (7-18); CALCIUM 11.6 mg/dL (8.5-10.1)
[2024-09-01 10:02] LABS: HEMATOCRIT 23.5 % (35.4-49); HEMOGLOBIN 7.8 GM/dL (11.7-16.9); MCH 33.4 pg (25.7-33.7); MCHC 33.1 g/dl (32.0-35.9); MEAN CELL VOLUME 100.9 fl (80-96); MEAN PLT VOLUME 8.3 fl (7.5-11.1); PLATELET COUNT 264 10^3/uL (134-434); RBC 2.33 M/mm3 (4.00-5.60); RDW 20.3 % (11.9-15.9); WHITE BLOOD COUNT 17.2 K/mm3 (4.0-10.0)
[2024-09-01 10:04] LABS: CREATININE 2.8 mg/dL (0.55-1.3)
[2024-09-01 11:31] LABS: ANISOCYTOSIS 1+; MACROCYTOSIS 1+
[2024-09-01 15:41] VITALS: BMI 23.4
[2024-09-01] MEDS: ACETAMINOPHEN 1000 MG/100 ML BAG IVPB PRN (22:03)
[2024-09-02 10:50] LABS: HEMATOCRIT 24.4 % (35.4-49); HEMOGLOBIN 8.3 GM/dL (11.7-16.9); MEAN PLT VOLUME 7.9 fl (7.5-11.1); PLATELET COUNT 263 10^3/uL (134-434); RBC 2.44 M/mm3 (4.00-5.60); RDW 19.9 % (11.9-15.9); WHITE BLOOD COUNT 18.1 K/mm3 (4.0-10.0)
[2024-09-02 11:11] LABS: POTASSIUM 3.6 mmol/L (3.5-5.1)
[2024-09-02 11:14] LABS: ALBUMIN 2.6 g/dl (3.4-5.0); CALCIUM 11.8 mg/dL (8.5-10.1)
[2024-09-02 11:18] LABS: CREATININE 2.7 mg/dL (0.55-1.3)
[2024-09-02 11:19] LABS: BILIRUBIN,TOTAL 0.3 mg/dL (0.2-1); TOT PROT 7.7 g/dl (6.4-8.2)
[2024-09-02 12:02] LABS: ANISOCYTOSIS 2+; MACROCYTOSIS 0; ROULEAU 2+
[2024-09-02 13:05] VITALS: BP 111/65; PULSE 96; RESP 20; TEMP 99.3
== END 2024-09-02 13:56 | disposition short-term general hospital (02) | DRG 208 ==
LOC: JER 17:39 → JERBED 20:06 → J5S 21:46
PROVIDERS: ADMIT Internal Medicine
PROC: 5A1945Z Respiratory Ventilation, 24-96 Consecutive Hours (ICD-10-PCS; principal; 2024-08-30)
PROC: 0B21XFZ Change Tracheostomy Device in Trachea, External Approach (ICD-10-PCS; 2024-09-02)
DX: J95.851 Ventilator associated pneumonia (principal); L89.154 Pressure ulcer of sacral region, stage 4; J96.10 Chronic respiratory failure, unspecified whether with hypoxia or hypercapnia; J44.1 Chronic obstructive pulmonary disease with (acute) exacerbation; Z99.11 Dependence on respirator [ventilator] status; E87.0 Hyperosmolality and hypernatremia; J95.03 Malfunction of tracheostomy stoma; J44.0 Chronic obstructive pulmonary disease with (acute) lower respiratory infection; N40.0 Benign prostatic hyperplasia without lower urinary tract symptoms; I12.9 Hypertensive chronic kidney disease with stage 1 through stage 4 chronic kidney disease, or unspecified chronic kidney disease; E11.22 Type 2 diabetes mellitus with diabetic chronic kidney disease; N18.9 Chronic kidney disease, unspecified; I48.91 Unspecified atrial fibrillation; D72.829 Elevated white blood cell count, unspecified; D63.8 Anemia in other chronic diseases classified elsewhere; R33.9 Retention of urine, unspecified; R80.9 Proteinuria, unspecified; E83.52 Hypercalcemia; Z93.0 Tracheostomy status; Z93.1 Gastrostomy status; Z99.81 Dependence on supplemental oxygen; Y84.8 Other medical procedures as the cause of abnormal reaction of the patient, or of later complication, without mention of misadventure at the time of the procedure
CPT/HCPCS: 0241U-QW; 36415; 36430; 71045-TC-FY; 80048; 80053; 81003; 82803; 82962; 83605; 83735; 83880; 84100; 84484; 85025; 85027; 85610; 85651; 85730; 86140; 86850; 86900; 86901; 86922; 87040; 87081; 87086; 93005; 93010; 94002; 94640; 99285-25; J0131; J1644; P9058